=== PATIENT | female | born 1950 | race Caucasian/White ===

== ENCOUNTER 2022-12-15 08:30 | Outpatient (CLI) | payer OTHER, SELFPAY ==
[2022-12-15 13:47] LABS: Basophils Absolute Auto 0.02 K/uL (0.00-0.30); Basophils Percent Auto 0.3 % (0.0-3.0); Eosinophils Absolute Auto 0.12 K/uL (0.00-0.50); Eosinophils Percent Auto 1.8 % (0.0-7.0); Hematocrit 42.9 % (33.0-51.0); Hemoglobin* 14.5 gm/dL (12.0-16.0); Immature Granulocytes Abs Auto 0.02 K/uL (0.00-0.30); Immature Granulocytes Pct Auto 0.3 %; Lymphocytes Absolute Auto 1.58 K/uL (0.90-2.90); Lymphocytes Percent Auto 23.5 % (20-44); Mean Corpuscular HGB Conc 34 gm/dL (32-36); Mean Corpuscular Hemoglobin 31 pg (26-34); Mean Corpuscular Volume 91 fL (80-100); Monocytes Percent Auto 8.9 % (0.0-11.0); Neutrophils Absolute Auto 4.37 K/uL (1.7-7.0); Neutrophils Percent Auto 65.2 % (42.0-72.0); Platelet Count* 176 K/uL (140-440); RDW Coefficient of Variation % 12.2 % (11.5-15.5); Red Blood Count 4.74 m/uL (4.00-5.20); White Blood Count* 6.71 K/uL (4.50-11.00)
[2022-12-15 13:54] LABS: Chloride* 100 mmol/L (96-114); Potassium* 4.5 mmol/L (3.6-5.1); Sodium* 137 mmol/L (135-149)
[2022-12-15 13:57] LABS: Blood Urea Nitrogen* 29 mg/dL (7-30); Carbon Dioxide* 32 mmol/L (20-32); Cholesterol* 174 mg/dL (90-199); Creatinine* 0.8 mg/dL (0.5-1.5); Estimated Glomerular Filt Rate 78 ml/min; Glucose* 137 mg/dL (60-115); Slide Review Reflex No; Triglycerides* 144 mg/dL (40-149)
[2022-12-15 13:58] LABS: Calcium* 10.3 mg/dL (8.4-10.6); HDL Cholesterol* 57 mg/dL (>=50); LDL Cholesterol Calculated 88 mg/dL (<100)
== END 2022-12-15 08:31 | disposition home or self-care (01) ==
PROVIDERS: PCP Family Medicine; Visit Provider Family Medicine
DX: I10 Essential (primary) hypertension (principal); E11.9 Type 2 diabetes mellitus without complications; E04.1 Nontoxic single thyroid nodule
CPT/HCPCS: 80048; 80061; 85025

== ENCOUNTER 2023-08-09 11:20 | Outpatient (CLI) | payer OTHER, SELFPAY | END 2023-08-09 11:21 | disposition home or self-care (01) | PROVIDERS: PCP Family Medicine; Visit Provider Family Medicine | DX: I10 Essential (primary) hypertension (principal); E11.9 Type 2 diabetes mellitus without complications; R53.1 Weakness; R11.10 Vomiting, unspecified | CPT/HCPCS: 80048; 85025 ==

== ENCOUNTER 2023-12-26 08:36 | Outpatient (CLI) | payer OTHER, SELFPAY | END 2023-12-26 08:37 | disposition home or self-care (01) | PROVIDERS: PCP Family Medicine; Visit Provider Family Medicine | DX: I10 Essential (primary) hypertension (principal); Z13.220 Encounter for screening for lipoid disorders | CPT/HCPCS: 80048; 80061 ==

== ENCOUNTER 2024-08-16 13:48 | Outpatient (RCR) | payer OTHER, SELFPAY ==
--- NOTE | 2024-08-16 15:01 | PT.OPEX ---
PT [place] [facility] PT [facility] Eval Start: 07/31/24 13:48 Freq: Status: Active Protocol: Document 08/16/24 09:54 MLS (Rec: 08/16/24 14:59 MLS [id number]) E-signed By Carlyn Franco DPT Physical Therapy Outpatient Evaluation Insurance Information Recert Due Date 11/13/24 Insurance Name Medicare B,[facility] Medical Diagnosis M17.12 Unilateral primary Oa, left knee Z96.652 Presence of left artificial knee joint s/p left TKA 09/11/24 Treating Diagnosis L TKA protocal Referring MD Dr. Smith Subjective Subjective Patient is a 74 year old female who presents to physical therapy for her pre- op appointment prior to left TKA on 09/11/24. Significant past medical history includes heart condition (murmur - EKG next week), previous and current LE blood clots, hypertension and arthritis. Pain Comments Today: 7/10 on a 0-10 pain scale with 10 = extreme pain At its worst: 8-9/10 At its best: 1-2/10 Current Work Status Retired Precautions Weight Bearing Status Full Weight Bearing Therapy Limitations/Systems Review Not Limited Objective Other/Pertinent Objective GAIT/FUNCTIONAL MOBILITY Ambulates with antalgic gait, no SPC today KNEE ROM Right: Extension/Flexion: 0-120 Left: Extension/Flexion: 0-120 HIP ROM Grossly tested WNL LLE MMT: Hip flexion: R 5/5 L 4+/5 Hip abduction: R 5/5 L 4+/5 Hip extension: R 4+/5 L 4+/5 Knee flexion: R 5/5 L 4+/5 Knee extension: R 5/5 L 4+/5 Reviewed/demonstrated on frequency to perform HEP post operatively including: long sitting quad ankle pumps supine heel slide with strap supine quad sets supine SAQ SLR with quad set seated long arc quad seated knee flexion AAROM supine knee extension stretch on towel roll Extensive discussion and education on what to expect post operatively. Time was spent discussing home modifications, Assistive devices, pain control, fall prevention, hospital stay time line, and assist needed for activities post surgically. Pt questions were answered and demonstrated understanding. Assessment Assessment/Impression Pt is a 74 year old female who presents to PT for her pre-op appointment prior to left TKA on 09/11/24. Patient also has notable objective findings including limited ROM, tenderness to palpation, and decreased strength which are also likely contributing to the problem. Patient is a good candidate for skilled therapy to target deficits described above. Skilled PT intervention is necessary for use of therapeutic exercise manual therapy, neuromuscular re- education, gait training, and therapeutic activity. Functional impairments include difficulty with: standing, walking, sleeping, exercising, and ADLS. See appropriate sections of PT eval for complete list of goals and POC . D/C plan and criteria is for pt to achieve the goals as listed below or until max rehab potential is met. Pt was agreeable with plan of care and goals established. Primary Functional Limitations standing walking exercising ADLS sleeping Plan of Care Rehabilitation Potential Good Physical Therapy Goals Within 10-12 weeks: 1) Pt will improve knee AROM at least 0 to 120 for improved sit to stand transfers 2) Pt will demonstrate negative extensor lag during straight leg raise exercise with ability to complete at least 15 reps with 5 sec hold to improve strength for ambulation 3) Patient will demonstrate/ report ability to walk for 15 minutes w/SPC with pain level <1/10, to allow for community and household ambulation. 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 Coordination/Communication With Referral Source Treatment Plan/Direct Interventions Gait Training,Manual Therapy, Neuromuscular Re-ed, Therapeutic Activities, Therapeutic Exercises Patient Will Be Discharged From Therapy Independently Progressing Evaluation Billing Untimed Code Treatment Minutes 30 Complexity Low Certification Information Provider Signature Required Yes Provider Signature Shows Agreement With POC & Medical Necessity Physician NPI Number Write NPI# Here Physician Comment/Change : Physician Signature & Date Requested Please Sign/Date Here
== END 2024-09-25 13:02 | disposition home or self-care (01) ==
PROVIDERS: PCP Family Medicine; Visit Provider Orthopaedic Surgery
DX: M17.12 Unilateral primary osteoarthritis, left knee (principal); Z51.89 Encounter for other specified aftercare
CPT/HCPCS: 97161

== ENCOUNTER 2024-08-22 08:47 | Outpatient (CLI) | payer OTHER, SELFPAY ==
--- OUTSIDE RECORDS SUMMARY | 2024-08-22 08:48 | XMS_ITS | Continuity of Care Document ---
Author Organization [facility] Address [address] [place] [id number] Insurance Providers Payer Plan Claims Address Claims Phone Policy Number Group Number Relation Employer Guarantor Name Guarantor Guarantor Address Guarantor Phone MEDICA RE MEDIC ARE tel:[phone] Self chandler cotto 1950 [address] [place] [address] BCBS BCBS [address] [address], [place] [address] tel:[phone] Self chandler cotto 1950 [address] [place] [address] MEDICA RE PART A - HB USE ONLY MEDIC ARE PART A - HB USE ONLY ATTN: CLAIMS, [address], [place] [address] [phone] Nathan cotto 1950 [address] [place] [address] Problems Condition ICD9 code ICD10 code SNOMED code Start Date End Date S tatus Encounter for screening for other metabolic disorders Z13.228 Cough, unspecified R05.9 Acute bronchitis, unspecified J20.9 Wheezing R06.2 Subacute cough R05.2 Pulmonary hypertension, unspecified I27.20 Results No Results Allergies, adverse reactions, alerts No known allergies and adverse reactions Medications No administered medications reported Vital Signs No vital signs reported Social History No smoking Hx information available
--- OUTSIDE RECORDS SUMMARY | 2024-08-22 08:48 | XMS_ITS | Clinical Summary ---
Author Organization [facility] Address [address] [address] Care Team Providers Care Fish Cutter Name Role Phone Patrick Mattson MD Primary Care Provider [phone] Source Comments You are receiving this document as you are listed as the primary care provider,follow-up provider, or the patient has been referred to you for consultation.This is in compliance with the Medicare and[facility] Incentive Program,which states Providers who transition their patient to another setting of careor provider of care or refers their patient to another provider of care shouldprovide summary care record for each transition of care or referral. Health in Reach Allergies Active Allergy Reactions Criticality Noted Date Comments Penicillins Rash 09/24/2021 Medications Medication Sig Dispensed Refills Start Date End Date Status ATENolol-chlorthalidon e (TENORETIC) 50-25 MG tablet Take 1 Tablet by mouth daily. Active amLODIPine (NORVASC) 10 MG tablet Take 10 mg by mouth daily. Active furosemide (LASIX) 40 MG tablet Take 40 mg by mouth daily. Active apixaban (ELIQUIS) 5 MG tablet Take 2.5 mg by mouth two times a day. Active losartan (COZAAR) 100 MG tablet Take 100 mg by mouth daily. Active Social History Tobacco Use Types Packs/Day Years Used Date Smoking Tobacco: Never Assessed Sex and Gender Information Value Date Recorded Sex Assigned at Not on file Gender Identity Not on file Sexual Orientation Not on file Last Filed Vital Signs Vital Sign Reading Time Taken Comments Blood Pressure 144/69 09/24/2021 9:37 AM WEED SPRAYER Pulse 61 09/24/2021 9:37 AM WEED SPRAYER Temperature - - Respiratory Rate - - Oxygen Saturation 95% 09/24/2021 9:37 AM WEED SPRAYER Inhaled Oxygen Concentration - - Weight 133.8 kg (295 lb) 09/24/2021 9:37 AM WEED SPRAYER Height 170.2 cm (5' 7) 09/24/2021 9:37 AM WEED SPRAYER Body Mass Index 46.2 09/24/2021 9:37 AM WEED SPRAYER Plan of Treatment Health Maintenance Due Date Last Done Comments Colon Cancer Screening Plan Due 1950 Hep C Screening (Preventive Services) 1950 Medicare Annual Wellness Visit 1950 Mammogram 1950 DTaP/Tdap/Td (1 - Tdap) 1968 Zoster/Shingles (1 of 2) 1999 Dexa 2014 Pneumococcal 65+ Yrs (1 - PCV) 2014 COVID-19 Vaccine (3 - 2023-2 5 season) 2024 02/03/2021, 01/02/2021 Influenza (#1) 2024 RSV (1 - 1-dose 75+ series) 2024 HepA Aged Out No longer eligi ble based on patient's age to complete this topic HepB Aged Out No longer eligi ble based on patient's age to complete this topic Hib Aged Out No longer eligi ble based on patient's age to complete this topic IPV (Polio) Aged Out No longer eligi ble based on patient's age to complete this topic Infant RSV Aged Out No longer eligi ble based on patient's age to complete this topic MCV4 Aged Out No longer eligi ble based on patient's age to complete this topic Care Teams Fish 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
--- OUTSIDE RECORDS SUMMARY | 2024-08-22 08:49 | XMS_ITS | Clinical Summary ---
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 0 06/11/2014 Active Graduated Compression StockingsIndications:V enous insufficiency,Varicose veins of lower extremity, unspecified laterality, unspecified whether complicated,Edema, unspecified type For personal use. Length: calf Strength: 20-30 mmHg 1 Packet 06/30/2021 Active potassium chloride (KLOR-CON M20) 20 mEq Extended-Release tabletIndications:SOB (shortness of breath) Take 1 Tablet (20 mEq) by mouth once daily with a meal. 90 Tablet 1 04/29/2022 Active chlorthalidone (HYGROTON) 25 mg tabletIndications:Pulm onary valve stenosis, unspecified etiology Take 1 Tablet (25 mg) by mouth once daily. 90 Tablet 1 04/29/2022 Active apixaban (ELIQUIS) 5 mg tabletIndications:prev ention of venous thromboembolism recurrence Take 2.5 mg by mouth in the morning and 2.5 mg in the evening. Active metFORMIN (GLUCOPHAGE) 500 mg tabletIndications:Type 2 diabetes mellitus without complication, without long-term current use of insulin (HC) [The details of the medication are not available because there are pending changes by a home health clinician.] 60 Tablet 06/01/2022 Active Additional Information Patient not taking.Informant: Patient's Recall, Reported on 08/04/2022 sennosides-docusate (SENOKOT S) (8.6-50 mg) tabletIndications:Bili sharath dyskinesia [The details of the medication are not available because there are pending changes by a home health clinician.] 20 Tablet 06/30/2022 Active Additional Information Patient not taking.Reason: See Comment (not taking), Reported on 08/10/2022 ondansetron (ZOFRAN ODT) 4 mg disintegrating tabletIndications:Naus ea [The details of the medication are not available because there are pending changes by a home health clinician.] 30 Tablet 07/08/2022 Active Additional Information Patient not taking.Reported on 08/04/2022 traMADoL (ULTRAM) 50 mg tabletIndications:Naus ea [The details of the medication are not available because there are pending changes by a home health clinician.] 24 Tablet 07/08/2022 Active Additional Information Patient not taking.Informant: Patient's Recall, Reported on 08/04/2022 cholestyramine-sucrose 4 G (QUESTRAN) 4 gram packetIndications:Diar dago following gastrointestinal surgery [The details of the medication are not available because there are pending changes by a home health clinician.] 28 Packet 07/08/2022 Active Additional Information Patient not taking.Informant: Patient's Recall, Reported on 08/04/2022 WalkerIndications:Vent ral hernia without obstruction or gangrene Walker with front wheels for home use for 999 days. 1 Each 07/29/2022 Active oxyCODONE (ROXICODONE) 5 mg immediate release tabletIndications:Recu rrent ventral hernia with incarceration [The details of the medication are not available because there are pending changes by a home health clinician.] 10 Tablet 07/30/2022 Active Additional Information Patient not taking.Reason: See Comment (not taking), Reported on 08/10/2022 psyllium husk, with sugar, (METAMUCIL) 3.4 gram packetIndications:Diar dago, unspecified type [The details of the medication are not available because there are pending changes by a home health clinician.] 30 Packet 08/01/2022 Active Additional Information Patient not taking.Reason: See Comment (not taking), Reported on 08/10/2022 metoprolol succinate (TOPROL XL) 100 mg Sustained-Release tabletIndications:HTN (hypertension) Take 1 Tablet (100 mg) by mouth once daily. 30 Tablet 08/02/2022 Active losartan (COZAAR) 50 mg tabletIndications:HTN (hypertension) Take 1 Tablet (50 mg) by mouth two times daily. 30 Tablet 08/01/2022 Active Wheat Dextrin (Benefiber) 1 gram chew 2 Tablets two times daily. Active ondansetron (ZOFRAN) 4 mg tablet TAKE ONE TABLET BY MOUTH EVERY 12 HOURS FOR NAUSEA AND VOMITING. 07/02/2022 Active hydrALAZINE (APRESOLINE TABLET) 50 mg tabletIndications:HTN (hypertension) Take 1 Tablet (50 mg) by mouth three times daily. 270 Tablet 4 06/28/2024 Active Active Problems Problem Noted Date Diagnosed Date DM type 2 (diabetes mellitus, type 2) 07/26/2022 History of DVT of left lower extremity Chronic anticoagulation 07/24/2022 Recurrent ventral hernia with incarceration 07/10 Overview (07/26/2022): Status post exploratory laparotomy, lysis of adhesions, reduction of incarcerated incisional hernia, and incisional hernia repair without mesh, Dr. Campos, 07/25/2022. Biliary dyskinesia 06/28/2022 Obesity, morbid, BMI 40.0-49.9 06/28/2022 Ventral hernia without obstruction or gangrene 0 06/28/2022 Preoperative examination 06/28/2022 Acute dehydration 06/28/2022 DVT (deep venous thrombosis) 05/29/2022 HTN (hypertension) 07/01/2014 Resolved Problems Problem Noted Date Diagnosed Date Resolved Date Prediabetes 06/30/2022 07/26/2022 Abdominal pain 05/29/2022 07/25/2022 Encounters Date Type Department Care Team Description 06/28/2024 9:30 AM CDT Office Visit [facility] [address] [place] [address] Jaime Collins MD from Last 3 Months Immunizations Name Administration Dates Next Due Pneumococcal, Unspecified 05/10/2017(Deferred: P atient Refused) Family History Medical History Relation Name Comments Stroke Father Relation Name Status Comments Father Mother Social History Tobacco Use Types Packs/Day Years Used Date Smoking Tobacco: Never Smokeless Tobacco: Never Alcohol Use Standard Drinks/Week Comments Yes 0 (1 standard drink = 0.6 oz pur e alcohol) rare wine Social Connections Answer Date Recorded Frequency of Communication with Friends and Fami ly Not on file 10/10/2021 Financial Resource Strain Answer Date R ecorded Difficulty of Paying Living Expenses Not on file 10/10/2021 Difficulty of Paying Living Expenses Not on file 10/10/2021 Sex and Gender Information Value Date Recorded Sex Assigned at Not on file Gender Identity Not on file Sexual Orientation Not on file Obstetrics History Last Filed Vital Signs Vital Sign Reading Time Taken Comments Blood Pressure 122/66 08/26/2022 12:09 PM GUN PROFILER Pulse 53 08/26/2022 12:09 PM GUN PROFILER Temperature 36.8 ??C (98.3 ??F) 08/26/2022 12:[address] Respiratory Rate 18 08/26/2022 12:09 PM GUN PROFILER Oxygen Saturation 95% 08/26/2022 12:09 PM GUN PROFILER Inhaled Oxygen Concentration - - Weight 122.9 kg (271 lb) 07/31/2022 3:00 AM CDT Height 167.6 cm (5' 6) 07/29/2022 9:00 AM CDT Body Mass Index 43.74 07/29/2022 9:00 AM CDT Plan of Treatment Upcoming Encounters Date Type Department Care Team (Late st Contact Info) Description 08/22/2024 9:00 AM GUN PROFILER Ancillary Procedure [facility] [address] [place] [address] Health Maintenance Due Date Last Done Comments Pneumococcal series for age 65+ (1 of 2 - PCV) 1955 Tdap 1960 Depression screening for age 12+ 1961 Hepatitis C screening for age 18-79 1967 Tetanus booster 1969 Colonoscopy through age 75 1994 Lipids for age 45-75 1994 Zoster (shingles) series for age 50+ (1 of 2) 1999 DEXA/DXA scan for age 65+ 2014 Medicare Wellness for age 65+ 2014 BMI (ht and wt on same day) for age 18+ 05/05/2023 0 05/05/2022, 06/30/2021 COVID-19 vaccine series (2023- season) 2024 02/03/2021, 01/02/2021 Influenza for age 65+ 06/10/2024 RSV vaccine for adults or pr egnancy (1 - 1-dose 75+ series) 2024 Advance Directives * Full Code (Latest Code Status on File) Date Activated Date Inactivated Comments 07/25/2022 3:20 PM 08/01/2022 2:09 PM Patient in tended on full code status and was not aware that she was listed as DNR. Patient and family at bed side would like her to be full code. Question Answer Comments Code Status Discussion: Reviewed Preferences * DNR Date Activated Date Inactivated Comments 07/24/2022 7:34 PM 07/25/2022 3:20 PM Question Answer Comments Code Status Discussion: Reviewed Preferences * DNR Date Activated Date Inactivated Comments 06/28/2022 9:38 AM 06/30/2022 12:30 PM Question Answer Comments Code Status Discussion: Other prior or ders * DNR Date Activated Date Inactivated Comments 05/29/2022 12:34 PM 05/30/2022 4:19 PM Question Answer Comments Code Status Discussion: Reviewed Preferences Care Teams Pressed Or Blown Glass Worker Relationship Specialty Start Date End Date Luis Fonseca MD [address] [place] [id number] PCP - General Family Practice 07/24/22
== END 2024-08-22 08:48 | disposition home or self-care (01) ==
LOC: RAD 08:48
PROVIDERS: PCP Family Medicine; Visit Provider Internal Medicine Cardiovascular Disease
DX: I47.10 Supraventricular tachycardia, unspecified (principal); I51.7 Cardiomegaly; I27.20 Pulmonary hypertension, unspecified
CPT/HCPCS: 93306

== ENCOUNTER 2024-08-29 11:09 | Outpatient (CLI) | payer OTHER, SELFPAY ==
--- OUTSIDE RECORDS SUMMARY | 2024-08-29 11:11 | XMS_ITS | Clinical Summary ---
Author Organization [facility] Address [place], [place] [address] Care Team Providers Care Cobbler Mckay Name Role Phone Luis Fonseca MD Primary [...] Encounters Date Type Department Care Team Description 08/22/2024 9:00 AM DEPARTMENT CLERK Ancillary Procedure [facility] [address] [place] [address] 06/28/2024 9:30 AM CDT Office Visit [facility] [address] [place] [address] Eve Collins MD from Last 3 Months Immunizations [...] Comments Blood Pressure 122/66 08/26/2022 12:09 PM DEPARTMENT CLERK Pulse 53 08/26/2022 12:09 PM DEPARTMENT CLERK Temperature 36.8 C (98.3 F) 08/26/2022 12:09 PM DEPARTMENT CLERK Respiratory Rate 18 08/26/2022 12:09 PM DEPARTMENT CLERK Oxygen Saturation 95% 08/26/2022 12:09 PM DEPARTMENT CLERK Inhaled Oxygen Concentration - - Weight 122.9 kg (271 lb) 07/31/2022 3:00 AM CDT Height 167.6 cm (5' 6) 07/29/2022 9:00 AM CDT Body Mass Index 43.74 07/29/2022 9:00 AM CDT Plan of Treatment Health Maintenance Due Date [...] 05/05/2023 0 05/05/2022, 06/30/2021 COVID-19 vaccine series ( season) 2024 02/03/2021, 01/02/2021 Influenza for age 65+ 06/10/2024 RSV vaccine for adults or pr egnancy (1 - 1-dose 75+ series) 2024 Procedures Procedure Name Priority Date/Time Associated Diagnosis Comments ECHO TTE COMPLETE WO CONTRAST Routine 08/22/2024 9:53 AM DEPARTMENT CLERK Supraventricular tachycardia, unspecified (HC) from Last 3 Months Results * ECHO TTE COMPLETE WO CONTRAST (08/22/2024 9:53 AM DEPARTMENT CLERK) AORTIC VALVE MEAN PG 6 mmHg EJECTION FRACTION 61 % LVEDD 5.5 cm EJECTION FRACTION 60 - 65% Anatomical Region Laterality Modality Ultrasound 08/22/2024 9:04 AM DEPARTMENT CLERK Narrative 08/22/2024 10:21 AM DEPARTMENT CLERK ECHOCARDIOGRAM CHAR WATT : 1950 74 years Study Date: 08/22/2024 9:04:36 AM Gender: F BP: 197/99 mmHg Height: 168.00 cm BSA: 2.31 m Weight: 127.00 kg Tech: CHRISTA Referring MD: EVE COLLINS Site: [facility] Reading Location: Mobile OP Patient Location: Outpatient. Procedure: 2D, Color Doppler and Spectral Doppler. Indication for study: SVT/ PV stenosis Cardiac Rhythm: Normal sinus.Study quality: Fair. Imaging limitations: This study was subject to imaging limitations due to body habitus and a prominent lung artifact. Final Impressions: 1. Normal LV size, mildly increased wall thickness, normal function with an estimated EF of 60 - 65%. 2. Right ventricular cavity size is normal, global systolic RV function is normal. 3. Mildly enlarged left atrium. 4. Mild pulmonic stenosis. Peak gradient 29mmHg, Vmax 2.7m/s, MG 16mmHg. Comparison Compared to prior exam of 2021, there has been no significant change. Chamber Sizes and Function Normal left ventricular size, mildly increased wall thickness, normal global systolic function with an estimated EF of 60 - 65%. No resting regional wall motion abnormality visualized. Left atrial size is mildly enlarged. Right ventricular cavity size is normal, global systolic RV function is normal. The right atrium is mildly enlarged. Right atrial area is 18 cm . The pulmonary artery is of normal size and origin. The sinus of Valsalva is normal sized. The ascending aorta is normal sized. Valves, RV Pressures and Diastolic Function The aortic valve is not well visualized , no stenosis and no regurgitation. The mitral valve is normal in structure, no mitral regurgitation. Normal diastolic function. The tricuspid valve is not well visualized. Tricuspid regurgitation is regurgitation is not evident. The pulmonic valve is not well visualized. No pulmonary regurgitation. TTE images do not appear adequate for transcather intervention with patient supine. Masses, Effusion, Shunts There is no pericardial effusion. The inferior vena cava is dilated, respiratory size variation greater than 50%. No left to right shunting was detected by limited color flow Doppler interrogation of the interatrial septum. MEASUREMENTS AND CALCULATIONS 2-D Measurements and LV Function: LVID (d) 5.4 cm LV FS% (2D) 48 % LVID (s) 2.8 cm LVOT diameter 2.0 cm IVS (d) 1.2 cm HR 58 bpm LVPW (d) 1.3 cm LA Vol index 33 ml/m2 Ao Sinus 3.2 cm RA area 18 cm Asc Ao 3.5 cm RV Max 4C (d) 4.2 cm Diastology: Mitral Tissue Doppler E Peak 0.8 m/s e', Septum 0.06 m/s A Peak 1.0 m/s e', Lateral 0.06 m/s E/A 0.8 E/e' Average 13.68 DT 256 msec Aortic Valve: Vmax 1.7 m/s EMILY (V) 1.78 cm VTI 0.44 m EMILY (I) 2.13 cm LVOT V max 0.9 m/s Max PG 12 mmHg LVOT VTI 0.29 m Mean PG 6 mmHg SV 94 ml Dim Index 0.65 SV index 41 ml/m CO 5.5 l/min CI 2.4 l/min/m Mitral Valve: MVA 3.0 cm MV P 1/2 74 msec Tricuspid Valve and estimated PA pressures: TAPSE 2.5 cm Pulmonic Valve: PV Vmax 2.6 m/s PV meanG 15 mmHg PV VTI 0.70 m . This study was interpreted by an [facility] accredited facility. CC: [facility] (med records) [facility]. Final Procedure Note Gabriele Chandler MD - 08/22/2024 ECHOCARDIOGRAM CHAR WATT : 1950 74 years Study Date: 08/22/2024 9:04:36 AM Gender: F BP: 197/99 mmHg Height: 168.00 cm BSA: 2.31 m Weight: 127.00 kg Tech: Rafael Referring MD: EVE COLLINS Site: [facility] Reading Location: Mobile OP Patient Location: Outpatient. Procedure: 2D, Color Doppler and Spectral Doppler. Indication for study: SVT/ PV stenosis Cardiac Rhythm: Normal sinus.Study quality: Fair. Imaging limitations: This study was subject to imaging limitations due tobody habitus and a prominent lung artifact. Final Impressions: 1. Normal LV size, mildly increased wall thickness, normal function withan estimated EF of 60 - 65%. 2. Right ventricular cavity size is normal, global systolic RV functionis normal. 3. Mildly enlarged left atrium. 4. Mild pulmonic stenosis. Peak gradient 29mmHg, Vmax 2.7m/s, [id number]. Comparison Compared to prior exam of 2021, there has been no significant change. Chamber Sizes and Function Normal left ventricular size, mildly increased wall thickness, normalglobal systolic function with an estimated EF of 60 - 65%. No restingregional wall motion abnormality visualized. Left atrial size is mildlyenlarged. Right ventricular cavity size is normal, global systolic RVfunction is normal. The right atrium is mildly enlarged. Right atrial areais 18 cm . The pulmonary artery is of normal size and origin. The sinusof Valsalva is normal sized. The ascending aorta is normal sized. Valves, RV Pressures and Diastolic Function The aortic valve is not well visualized , no stenosis and noregurgitation. The mitral valve is normal in structure, no mitralregurgitation. Normal diastolic function. The tricuspid valve is not wellvisualized. Tricuspid regurgitation is regurgitation is not evident. Thepulmonic valve is not well visualized. No pulmonary regurgitation. TTEimages do not appear adequate for transcather intervention with patientsupine. Masses, Effusion, Shunts There is no pericardial effusion. The inferior vena cava is dilated,respiratory size variation greater than 50%. No left to right shunting wasdetected by limited color flow Doppler interrogation of the interatrialseptum. MEASUREMENTS AND CALCULATIONS 2-D Measurements and LV Function: LVID (d) 5.4 cm LV FS% (2D) 48 % LVID (s) 2.8 cm LVOT diameter 2.0 cm IVS (d) 1.2 cm HR 58 bpm LVPW (d) 1.3 cm LA Vol index 33 ml/m2 Ao Sinus 3.2 cm RA area 18 cm Asc Ao 3.5 cm RV Max 4C (d) 4.2 cm Diastology: Mitral Tissue Doppler E Peak 0.8 m/s e', Septum 0.06 m/s A Peak 1.0 m/s e', Lateral 0.06 m/s E/A 0.8 E/e' Average 13.68 DT 256 msec Aortic Valve: Vmax 1.7 m/s EMILY (V) 1.78 cm VTI 0.44 m EMILY (I) 2.13 cm LVOT V max 0.9 m/s Max PG 12 mmHg LVOT VTI 0.29 m Mean PG 6 mmHg SV 94 ml Dim Index 0.65 SV index 41 ml/m CO 5.5 l/min CI 2.4 l/min/m Mitral Valve: MVA 3.0 cm MV P 1/2 74 msec Tricuspid Valve and estimated PA pressures: TAPSE 2.5 cm Pulmonic Valve: PV Vmax 2.6 m/s PV meanG 15 mmHg PV VTI 0.70 m . This study was interpreted by an [facility] accredited facility. CC: [facility] ([facility]) [facility]. Final Eve Collins MD ECHO ORD from Last 3 Months Advance Directives * Full Code (Latest Code [...] Code Status Discussion: Reviewed Preferences Care Teams Cobbler Mckay Relationship Specialty Start Date End Date Luis Fonseca MD [address] [place] [address] PCP - General Family Practice 07/24/22
--- OUTSIDE RECORDS SUMMARY | 2024-08-29 11:11 | XMS_ITS | Continuity of Care Document ---
Author Organization [employer] Address [address] [place] [facility] [address] [place] [id number] Insurance Providers Payer Plan Claims Address Claims Phone Policy Number Group Number Relation Employer Guarantor Name Guarantor Guarantor Address Guarantor Phone MEDICA RE MEDIC ARE tel:[phone] Self chandler cotto 1950 [address] [place] [address] BCBS BCBS [address] [address], [place] [address] tel:[phone] Self chandler cotto 1950 [address] [place] [address] MEDICA RE PART A - HB USE ONLY MEDIC ARE PART A - HB USE ONLY ATTN: CLAIMS, [address], [place] [phone] Nathan cotto 1950 [address] [place] [address] Problems Condition ICD9 code ICD10 code SNOMED [...]
--- OUTSIDE RECORDS SUMMARY | 2024-08-29 11:11 | XMS_ITS | Clinical Summary ---
Author Organization [facility] Address [address], [place] [address] Care Team Providers Care Skein Straightener Name Role Phone Patrick Mattson MD Primary Care Provider [phone] Source Comments You are receiving this document as you are listed as the primary care provider,follow-up provider, or the patient has been referred to you for consultation.This is in compliance with the Medicare and[facility] EHR Incentive Program,which states Providers who transition their patient to another setting of careor provider of care or refers their patient to another provider of care shouldprovide summary care record for each transition of care or referral. [employer] Allergies Active Allergy Reactions Criticality Noted Date [...] Comments Blood Pressure 144/69 09/24/2021 9:37 AM MASON TENDER Pulse 61 09/24/2021 9:37 AM MASON TENDER Temperature - - Respiratory Rate - - Oxygen Saturation 95% 09/24/2021 9:37 AM MASON TENDER Inhaled Oxygen Concentration - - Weight 133.8 kg (295 lb) 09/24/2021 9:37 AM MASON TENDER Height 170.2 cm (5' 7) 09/24/2021 9:37 AM MASON TENDER Body Mass Index 46.2 09/24/2021 9:37 AM MASON TENDER Plan of Treatment Health Maintenance Due Date [...] age to complete this topic Care Teams Skein Straightener Relationship Specialty Start Date End Date Patrick Mattson MD [address] [place] [address] PCP - General Family Practice 09/24/21
== END 2024-08-29 11:10 | disposition home or self-care (01) ==
PROVIDERS: PCP Family Medicine; Visit Provider Family Medicine
DX: Z01.818 Encounter for other preprocedural examination (principal)
CPT/HCPCS: 80048; 85025

== ENCOUNTER 2024-09-11 08:18 | Day surgery (SDC) | payer MEDICARE, SELFPAY ==
[2024-09-11] VITALS (30 sets, daily range): BP systolic 105–182; BP diastolic 51–105; PULSE 43–59; RESP 9–20; TEMP 35.7–37; O2SAT 85–98; BMI 45.5
--- OUTSIDE RECORDS SUMMARY | 2024-09-11 08:20 | XMS_ITS | Continuity of Care Document ---
Author Organization [facility] Address [address] [facility] [address] [place] [id number] Insurance Providers Payer Plan Claims Address Claims Phone Policy Number Group Number Relation Employer Guarantor Name Guarantor Guarantor Address Guarantor Phone MEDICA RE MEDIC ARE tel:[phone] Self chandler cotto 1950 [address] [place] [address] BCBS BCBS [address] [address], [place] [address] tel:[phone] Self chandler cotto 1950 [address] [place] [address] MEDICA RE PART A - HB USE ONLY MEDIC ARE PART A - HB USE ONLY ATTN: CLAIMS, [address], [place] [phone] Nathan cotto 1950 [address] [place] [address] Problems Condition ICD9 code ICD10 code SNOMED code Start Date End Date S tatus Encounter for screening for other metabolic disorders Z13.228 Cough, unspecified R05.9 Wheezing R06.2 Acute bronchitis, unspecified J20.9 Subacute cough R05.2 Pulmonary hypertension, unspecified I27.20 Pulmonary hypertension, unspecified I27.20 Encounter for screening, unspecified Z13.9 Results No Results Allergies, adverse reactions, alerts No known allergies and adverse reactions Medications No administered medications reported Vital Signs No vital signs reported Social History No smoking Hx information available
--- OUTSIDE RECORDS SUMMARY | 2024-09-11 08:20 | XMS_ITS | Clinical Summary ---
Author Organization [facility] Address [address], [place] [address] Care Team Providers Care Glassware Maker Name Role Phone Patrick Mattson MD Primary Care Provider [phone] Source Comments You are receiving this document as you are listed as the primary care provider,follow-up provider, or the patient has been referred to you for consultation.This is in compliance with the Medicare and[facility] EHR Incentive Program,which states Providers who transition their patient to another setting of careor provider of care or refers their patient to another provider of care shouldprovide summary care record for each transition of care or referral. [employer] Allergies Active Allergy Reactions Criticality Noted Date [...] Comments Blood Pressure 144/69 09/24/2021 9:37 AM OIL ANALYST Pulse 61 09/24/2021 9:37 AM OIL ANALYST Temperature - - Respiratory Rate - - Oxygen Saturation 95% 09/24/2021 9:37 AM OIL ANALYST Inhaled Oxygen Concentration - - Weight 133.8 kg (295 lb) 09/24/2021 9:37 AM OIL ANALYST Height 170.2 cm (5' 7) 09/24/2021 9:37 AM OIL ANALYST Body Mass Index 46.2 09/24/2021 9:37 AM OIL ANALYST Plan of Treatment Health Maintenance Due Date [...] on patient's age to complete this topic RSV Aged Out No longer eligi ble based on patient's age to complete this topic [id number] Aged Out No longer eligi ble based on patient's age to complete this topic Care Teams Glassware Maker Relationship Specialty Start Date End Date Patrick Mattson MD [address] [place] [address] PCP - General Family Practice 09/24/21
--- OUTSIDE RECORDS SUMMARY | 2024-09-11 08:21 | XMS_ITS | Clinical Summary ---
Author Organization [facility] Address [place], [place] [address] Care Team Providers Care Route Sales Specialist Name Role Phone Luis Fonseca MD Primary [...] Department Care Team Description 08/22/2024 9:00 AM BLANKET WASHER Ancillary Procedure [facility] [address] [place] [address] 06/28/2024 9:30 AM CDT Office Visit [facility] [address] [place] [address] Eve Collins MD from Last 3 Months [...] Comments Blood Pressure 122/66 08/26/2022 12:09 PM BLANKET WASHER Pulse 53 08/26/2022 12:09 PM BLANKET WASHER Temperature 36.8 C (98.3 F) 08/26/2022 12:09 PM BLANKET WASHER Respiratory Rate 18 08/26/2022 12:09 PM BLANKET WASHER Oxygen Saturation 95% 08/26/2022 12:09 PM BLANKET WASHER Inhaled Oxygen Concentration - - Weight 122.9 [...] COMPLETE WO CONTRAST Routine 08/22/2024 9:53 AM BLANKET WASHER Supraventricular tachycardia, unspecified (HC) from Last 3 Months Results * ECHO TTE COMPLETE WO CONTRAST (08/22/2024 9:53 AM BLANKET WASHER) AORTIC VALVE MEAN PG 6 mmHg EJECTION FRACTION 61 % LVEDD 5.5 cm EJECTION FRACTION 60 - 65% Anatomical Region Laterality Modality Ultrasound 08/22/2024 9:04 AM BLANKET WASHER Narrative 08/22/2024 10:21 AM BLANKET WASHER ECHOCARDIOGRAM CHAR WATT : 1950 74 years Study Date: 08/22/2024 9:04:36 AM Gender: F BP: 197/99 mmHg Height: 168.00 cm BSA: 2.31 m Weight: 127.00 kg Tech: CHRISTA Referring MD: EVE COLLINS Site: [facility] Reading Location: Mobile OP Patient [...] . This study was interpreted by an [facility] accredited facility. CC: [facility] (med records) [facility]. Final Procedure Note Gabriele Chandler MD - 08/22/2024 ECHOCARDIOGRAM CHAR WATT : 1950 74 years Study Date: 08/22/2024 9:04:36 AM Gender: F BP: 197/99 mmHg Height: 168.00 cm BSA: 2.31 m Weight: 127.00 kg Tech: CHRISTA Referring MD: EVE COLLINS Site: [facility] Reading Location: Mobile OP Patient [...] pulmonic stenosis. Peak gradient 29mmHg, Vmax 2.7m/s, [id number]. Comparison Compared to prior exam of 2021, [...] . This study was interpreted by an [facility] accredited facility. CC: [facility] ([facility]) [facility]. Final Eve Collins MD ECHO ORD from [...] Code Status Discussion: Reviewed Preferences Care Teams Route Sales Specialist Relationship Specialty Start Date End Date Luis Fonseca MD [address] [place] [address] PCP - General Family Practice 07/24/22
[2024-09-11] MEDS: ACETAMINOPHEN 500 MG TABLET 1000 MG PO ×3 (08:57→21:36)
[2024-09-11] MEDS: OXYCODONE (CR) 10 MG TAB.ER.12H PO (08:58)
[2024-09-11] MEDS: SODIUM CHLORIDE 0.9 % (FLUSH) 10 ML SYRINGE IVF (08:58)
[2024-09-11] MEDS: CELECOXIB 200 MG CAPSULE PO (08:58)
[2024-09-11] MEDS: LACTATED RINGERS 1000 ML 1,000 ML 100 ML IV (08:58)
[2024-09-11] MEDS: MIDAZOLAM HCL 1 MG/ML inj IVP (09:41)
[2024-09-11] MEDS: fentaNYL 100 MCG/2 ML inj IVP (09:41)
--- NOTE | 2024-09-11 09:45 | SUR.PREOP ---
TIME?OUT:?0940 PT/RN/MDA?VERIFICATION?OF?SURGICAL?SITE Left Knee,?PROCEDURE Nerve Block,?AND?CONSENT OBTAINED?PRIOR?TO?INVASIVE?PROCEDURE.
--- NOTE | 2024-09-11 09:57 | P.NB_ITS ---
Nerve Block Nerve Block Time Seen by Provider: 09:42 Date Seen: 09/11/24 Type of block requested by surgeon for post-operative analgesia: adductor canal Side: left Time out performed: Yes Verification of patient name: Yes Verification of date of : Yes Site marking: site marked Name of person performing procedure: Tino Continuous monitoring Was continuous monitoring of O2 sat, B/P, manager of employee relations, recorded every 15 minutes?: Yes Procedure Checklist: sterile prep, needles and gloves Ultrasound guided. Images saved: Yes Medications given in 5ml increments after negative aspiration: Marcaine %: 0.25 mL: 15 Needle gauge: 20 Precedex (mcg): 25 Patient tolerated procedure well: Yes Block Charges Block Charge (with Pro Fee): Femoral Nerve Use of Ultrasound Machine for Block: Yes- US Guidance/pain block
--- NOTE | 2024-09-11 09:58 | P.NB_ITS ---
Nerve Block Nerve Block Time Seen by Provider: 09:42 Date Seen: 09/11/24 Type of block requested by surgeon for post-operative analgesia: geniculars Side: left Time out performed: Yes Verification of patient name: Yes Verification of date of : Yes Site marking: site marked Name of person performing procedure: Tino Continuous monitoring Was continuous monitoring of O2 sat, B/P, monitoring and evaluation advisor, recorded every 15 minutes?: Yes Procedure Checklist: sterile prep, needles and gloves Ultrasound guided. Images saved: Yes Medications given in 5ml increments after negative aspiration: Marcaine %: 0.25 mL: 9 Needle gauge: 25 Patient tolerated procedure well: Yes Block Charges Block Charge (with Pro Fee): Genicular Nerve Block
--- NOTE | 2024-09-11 09:58 | W.ANESCHARGE ---
Anesthesia Charges Start Date/Time Anesthesia Start Date: 09/11/24 Anesthesia Start Time: 10:40 Stop Date/Time Anesthesia Stop Date: 09/11/24 Anesthesia Stop Time: 13:32 Summary Extremes of Age - Over 70 or under 1: MDA
[2024-09-11] MEDS: CEFAZOLIN 2 GM INJ IVP (10:51)
[2024-09-11] MEDS: TRANEXAMIC ACID 100 MG/ML INJ 1000 MG IV (10:52)
--- NOTE | 2024-09-11 10:53 | W.ANESCHARGE ---
Anesthesia Charges Start Date/Time Anesthesia Start Date: 09/11/24 Anesthesia Start Time: 10:40 Stop Date/Time Anesthesia Stop Date: 09/11/24 Anesthesia Stop Time: 13:32 Summary Extremes of Age - Over 70 or under 1: STRATEGIC BUSINESS DEVELOPMENT
--- NOTE | 2024-09-11 12:30 | CRLHL7_ITS ---
For Patients: As a result of the Cures Act, medical imaging exams and procedure reports are released immediately into your electronic medical record. You may view this report before your referring provider. If you have questions, please contact your health care provider. INDICATION: Postoperative total knee arthroplasty TECHNIQUE: Knee radiograph 2 views left COMPARISON: None FINDINGS: Bone: No acute fractures or aggressive bone lesions are identified. Joint: The patient is status post a total knee arthroplasty with patellar resurfacing. No significant knee effusion is seen. Soft tissue: Anterior subcutaneous gas and joint gas are present from recent surgery. No radiopaque foreign bodies are seen. IMPRESSION: 1. There is an unremarkable postoperative appearance of the knee arthroplasty. Dictated by: Justin Rivera MD @ 09/11/2024 14:05:29 (Electronically Signed)
--- NOTE | 2024-09-11 12:35 | P.ORPRC_ITS ---
Procedure Note Date of procedure: 09/11/24 Procedure: PREOPERATIVE DIAGNOSIS: Left knee osteoarthritis POSTOPERATIVE DIAGNOSIS: Left knee osteoarthritis NAME OF OPERATION: Left total knee arthroplasty SURGEON: Matthieu Smith MD PROCESS CONTROL MANAGER: Mrytle Moraes PA-C ANESTHESIA: Spinal ESTIMATED BLOOD LOSS: 0 mL COMPLICATIONS: None SPECIMENS: None DRAINS: None PREOPERATIVE ANTIBIOTICS: Ancef 3 grams, antibiotic impregnated cement IMPLANTS: 1. J[employer]J Attune revision CRS # 5 posterior stabilized femur, 14 mm x 50 mm cemented stem 2. # 5 revision CRS fixed-bearing tibia, 14 mm x 50 mm cemented stem 3. # 5 posterior stabilized, 5 mm fixed-bearing polyethylene 4. 38 patella INDICATIONS: The patient is a 74-year-old with a longstanding history of severe, unrelenting left knee pain secondary to end-stage (grade IV) left knee osteoarthritis. Despite appropriate nonoperative management, including activity modification, anti-inflammatories, [id number] pain medication, bracing, physical therapy, and injections they continue to have pain and disability. Operative intervention was offered. The risks, benefits and expected outcomes were discussed in detail. These included but were not limited to: Infection, bleeding, injury to blood vessel or nerve, venous thromboembolism. All questions were answered to their satisfaction. Use of an assistant director of residence life was necessary throughout the case for patient positioning and safety, soft tissue retraction, and closure. A modifier 22 should be added to this case. The patient's weight of 128 kg with a BMI of 45 made the exposure difficult. Additionally, to reduce the risk of aseptic loosening stemmed components were used. These factors added time and cost to complete the case. PROCEDURE: Spinal anesthesia was administered. The patient was placed supine on the operating table. The assistant director of residence life made sure the patient was positioned appropriately. The lower extremity was prepped and draped in the usual sterile fashion. The limb was exsanguinated with the Kwadwo bandage. The pneumatic tourniquet was inflated to 300 mmHg. A standard anterior incision was made with the knee in flexion. Subcutaneous dissection was sharply taken through fascial layer #1. Full-thickness medial and lateral flaps were elevated. The assistant director of residence life retracted the soft tissues and protected them throughout the case. A standard subvastus approach was made. The patella was subluxed. The infrapatellar fat pad was debrided. The menisci and cruciate ligaments were sharply d?brided. Marginal osteophytes were d?brided with the rongeur. The drill was used to penetrate the femoral canal. The canal was aspirated and irrigated with pulse lavage. The intramedullary femoral guide was placed for a 5-degree valgus cut, removing 10 mm off the distal femur. The saw was used to make the cut. Whitesides line and the trans epicondylar axis were marked. The femoral sizing guide was pinned onto the distal femur. Three degrees of external rotation nicely parallels the transepicondylar axis. Pins were placed for posterior referencing. The four-in-one cutting guide was pinned onto the distal femur. The anterior, posterior, and chamfer cuts were made. The assistant director of residence life protected the collateral ligaments. The revision trial was placed. The box cuts were made. The drill was used x2. The stemmed, boxed trial was placed and was an excellent fit. Attention was then turned to the proximal tibia. The extramedullary tibial chanelle de was placed for a neutral varus/valgus cut with 5 degrees of posterior slope, removing 2 mm based off the medial tibial surface. The assistant director of residence life protected the collateral ligaments and the neurovascular bundle. The saw was used to make the cut. Trial components were placed. The knee was nicely balanced in both flexion and extension. The trial components were removed. The tray was placed in appropriate rotation, parallel to our tibial cutting pins. It was pinned by the assistant director of residence life and the drill x2 was used. The stemmed tibial trial was placed. The punch was used. The tray was removed. The punch was used again. Attention was then turned to the patella. [place] patellar thickness was 23.5 mm. The lobster claw resection guide was used with the 9.5 mm darleen. The saw was used to make the cut. Drill holes were made by the assistant director of residence life. The trial was placed and was an excellent fit. Cancellous surfaces were irrigated with pulse lavage and thoroughly dried by the assistant director of residence life. We cemented the tibial component, then the femoral component. We impacted the 5 mm polyethylene onto the tibial tray. The knee was brought into full extension. We then cemented the patellar component. Excessive cement was removed. The cement was allowed to harden. The knee was taken through a range of motion and was found to be nicely balanced in both flexion and extension. The patella tracks centrally. The assistant director of residence life did a three minute dilute Betadine solution soak. The assistant director of residence life irrigated the wound with 3 liters of normal saline via pulse lavage. The assistant director of residence life reapproximated the extensor mechanism with #1 Vicryl in an interrupted lnojiz-km-xelka fashion. The assistant director of residence life then ran the extensor mechanism with a #1 PDO Stratafix. The assistant director of residence life closed the subcutaneous tissues with a 3-0 Str atafix and the skin with a running 3-0 Stratafix in a subcuticular fashion. Glue was used to seal the skin. The assistant director of residence life placed a dry dressing. Sponge and needle counts were correct x2. The patient tolerated the procedure well. There were no apparent complications. They were carefully transferred to the hospital bed and taken to the postanesthesia care unit in satisfactory condition. PLAN: The patient will be mobilized with physical therapy. Given the patient's history of DVT/PE, Xarelto will be used for DVT prophylaxis. They will be discharged to home once medically appropriate.
[2024-09-11] MEDS: LACTATED RINGERS 1000 ML 1,000 ML 75 ML IV (15:56)
[2024-09-11] MEDS: CEFAZOLIN 3 GM in 0.9 % SODIUM CHLORIDE Mini-bag 100 ML IVPB (16:45)
[2024-09-11] MEDS: HYDROmorphone 0.5 mg/0.5 ml inj IVP ×3 (17:39→23:23)
[2024-09-11] MEDS: ONDANSETRON 2 MG/ML inj 4 MG IVP (17:40)
--- NOTE | 2024-09-11 18:24 | P.IMCN_ITS ---
Date of Consult Consult date: 09/11/24 Primary Care Provider: Luis Fonseca MD Consult Narrative Narrative: HOSPITALIST CONSULT Procedure: Left total knee arthroplasty SURGEON: Matthieu Smith MD [employer] MANAGER: Myrtle Moraes PA-C ANESTHESIA: Spinal ESTIMATED BLOOD LOSS: 0 mL COMPLICATIONS: None The hospital medicine team was asked by the orthopedic surgery team to manage the patient's HTN and hx of pulmonary embolis/DVT There have been no perioperative complications. I have updated and reviewed the active medical problems, past medical history, past surgical history, social history, allergies and medications in our [facility] EMR. This includes a cross reference to care everywhere in [facility] and with [facility] databases. PHYSICAL EXAM: CODE STATUS: FULL CODE CONSTITUTIONAL: Conversive, good historian. A/O. Knows setting and context. VITAL SIGNS: see record. HEENT: Normocephalic, atraumatic. PERRL, EOMI, conjunctivae pink, no scleral icterus. Ears and nose externally normal. Pharynx normal. NECK: No JVD. No carotid bruit, no thyromegaly, no adenopathy. CHEST: Clear to auscultation bilaterally HEART: S1 and S2 normal. ABDOMEN: Flat, soft, nontender. Normal bowel sounds. Moderately obese. EXTREMITIES: No edema. MUSCULOSKELETAL: Surgical dressing is intact/dry. NEURO: Cranial nerves intact. Mentation normal. Normal affect. SKIN: No rashes, petechiae, concerning changes PSYCHIATRIC: Mentation normal. INVESTIGATIONS: EMR Reviewed; Pre-OP Reviewed DISPOSITION: DVT: Agree with 30 days of a DOAC. GI: PO intake PFSH [facility] Medical History (Updated 09/11/24 @ 19:38 by Katey Joseph MD) History of deep venous thrombosis (DVT) of distal vein of right lower extremity (03/19/21) ?Z86.718 - Personal history of other venous thrombosis and embolism (ICD-10) History of pulmonary embolus (PE) (04/09/21) ?Z86.711 - Personal history of pulmonary embolism (ICD-10) SVT (supraventricular tachycardia) (07/2022) ?I47.10 - Supraventricular tachycardia, unspecified (ICD-10) Osteoarthritis of left knee ?M17.12 - Unilateral primary osteoarthritis, left knee (ICD-10) Primary hypertension ?I10 - Essential (primary) hypertension (ICD-10) Chronic nausea ?R11.0 - Nausea (ICD-10) Osteoarthritis of right knee ?M17.11 - Unilateral primary osteoarthritis, right knee (ICD-10) Chronic left hip pain ?M25.552 - Pain in left hip (ICD-10) ?G89.29 - Other chronic pain (ICD-10) Chronic left shoulder pain ?M25.512 - Pain in left shoulder (ICD-10) ?G89.29 - Other chronic pain (ICD-10) Chronic neck pain ?M54.2 - Cervicalgia (ICD-10) ?G89.29 - Other chronic pain (ICD-10) History of COVID-19 (06/2022) ?Z86.16 - Personal history of COVID-19 (ICD-10) Pulmonary hypertension ?I27.20 - Pulmonary hypertension, unspecified (ICD-10) Thyroid nodule ?E04.1 - Nontoxic single thyroid nodule (ICD-10) MARISOL (obstructive sleep apnea) ?G47.33 - Obstructive sleep apnea (adult) (pediatric) (ICD-10) Surgical History (Updated 09/11/24 @ 19:38 by Katey Joseph MD) Status post total knee replacement, left ?Z96.652 - Presence of left artificial knee joint (ICD-10) Incarcerated ventral hernia (07/23/22) ?K43.6 - Other and unspecified ventral hernia with obstruction, without gangrene (ICD-10) History of total abdominal hysterectomy and bilateral salpingo-oophorectomy (12/26/98) ?Z90.710 - Acquired absence of both cervix and uterus (ICD-10) ?Z90.722 - Acquired absence of ovaries, bilateral (ICD-10) ?Z90.79 - Acquired absence of other genital organ(s) (ICD-10) History of tubal ligation (1984) ?Z98.51 - Tubal ligation status (ICD-10) History of laparoscopic cholecystectomy (06/29/22) ?Z90.49 - Acquired absence of other specified parts of digestive tract (ICD- 10) Family History Father Stroke, Onset Age: 82 Brother Lung cancer Sister Uterine cancer Thyroid disease Mother Coronary artery disease Social History (Updated 08/29/24 @ 10:33 by Kerrie Linton ~ RMA, RMA) Narrative: , five kids, retired, nonsmoker, social ETOH What is your current living situation?: I presently have a place to live Problems where you live: no known problems In the past 12 months, utilities in danger of being shut off: no In the past 12 mos, have been you worried that your food would run out before you had money to buy more?: never true In the past 12 mos, the food you bought just didn't last and you didn't have money to buy more?: never true Smoking Status: Never smoker How often do you have a drink containing alcohol: monthly or less How many standard drinks containing alcohol do you have on a typical day: 1 or 2 AUDIT-C Alcohol total score: 1 Non-prescribed substance use: denies use How often does anyone, including family, friends and others, physically hurt you : never How often does anyone, including family, friends and others, insult or talk down to you: never How often does anyone, including family, friends and others, threaten you with harm: never How often does anyone, including family, friends and others, scream or curse at you: never Meds Home Medications and Allergies Home Medications ?Medication ?Instructions ?Recorded ?Confirmed ?Type hydralazine 50 mg tablet 50 mg PO TID 08/29/24 09/11/24 History amlodipine 10 mg tablet 10 mg PO HS 09/11/24 09/11/24 History chlorthalidone 25 mg tablet 25 mg PO DAILY 09/11/24 09/11/24 History Allergies Allergy/AdvReac Type Severity Reaction Status Date / Time diatrizoate meglumine Allergy Unknown Rash & Verified 09/11/24 08:28 Itching hydrochlorothiazide (From Allergy Unknown Unknown Verified 09/11/24 08:28 Zestoretic) Iodinated Contrast Media Allergy Unknown Rash & Verified 09/11/24 08:28 Itching Penicillins Allergy Unknown Unknown Verified 09/11/24 08:28 lisinopril AdvReac Unknown Cough Verified 09/11/24 08:28 Exam Const: Vital Signs, click to edit/add: Vital Signs - 24 hr 09/11/24 08:38 09/11/24 09:40 09/11/24 09:45 Temperature 98.1 F Pulse Rate 56 L 55 L 56 L Pulse Rate [Pulse Oximeter] Respiratory Rate 16 16 16 Blood Pressure 182/72 H 164/69 H 156/67 H Pulse Oximetry 96 98 98 Oxygen Delivery Me thod Room Air Nasal Cannula Nasal Cannula Oxygen Flow Rate 2 2 09/11/24 09:50 09/11/24 09:55 09/11/24 13:30 Temperature 96.8 F L Pulse Rate 55 L 56 L 49 L Pulse Rate [Pulse Oximeter] Respiratory Rate 16 16 16 Blood Pressure 143/67 H 142/66 H 119/51 L Pulse Oximetry 98 98 92 Oxygen Delivery Me thod Nasal Cannula Nasal Cannula Room Air Oxygen Flow Rate 2 2 09/11/24 13:35 09/11/24 13:40 09/11/24 13:45 Temperature Pulse Rate 44 L 44 L 43 L Pulse Rate [Pulse Oximeter] Respiratory Rate 14 16 13 Blood Pressure 107/52 L 113/55 L 114/57 L Pulse Oximetry 96 94 96 Oxygen Delivery Me thod Oxygen Flow Rate 09/11/24 13:50 09/11/24 13:54 09/11/24 14:05 Temperature 97.1 F L Pulse Rate 45 L 44 L 46 L Pulse Rate [Pulse Oximeter] Respiratory Rate 12 14 20 Blood Pressure 116/59 L 128/55 L 130/66 Pulse Oximetry 95 97 96 Oxygen Delivery Me thod Room Air Oxygen Flow Rate 09/11/24 14:15 09/11/24 14:30 09/11/24 14:45 Temperature 96.2 F L Pulse Rate 45 L 45 L 48 L Pulse Rate [Pulse Oximeter] Respiratory Rate 20 20 16 Blood Pressure 131/62 141/105 H 124/68 Pulse Oximetry 96 93 96 Oxygen Delivery Me thod Room Air Room Air Room Air Oxygen Flow Rate 09/11/24 15:00 09/11/24 15:00 09/11/24 15:00 Temperature 96.6 F L Pulse Rate 46 L Pulse Rate [Pulse Oximeter] 58 L Respiratory Rate 16 16 Blood Pressure 105/56 L Pulse Oximetry 96 94 Oxygen Delivery Me thod Room Air Room Air Oxygen Flow Rate 09/11/24 15:30 09/11/24 16:00 09/11/24 17:00 Temperature Pulse Rate 51 L 50 L 58 L Pulse Rate [Pulse Oximeter] Respiratory Rate Blood Pressure 143/69 H 140/62 H 138/65 Pulse Oximetry 94 96 96 Oxygen Delivery Me thod Room Air Room Air Room Air Oxygen Flow Rate 09/11/24 17:55 09/11/24 18:00 09/11/24 18:02 Temperature Pulse Rate 56 L 56 L Pulse Rate [Pulse Oximeter] Respiratory Rate 9 L 10 L 10 L Blood Pressure 155/68 H Pulse Oximetry 85 L 88 96 Oxygen Delivery Me thod Room Air Room Air Nasal Cannula Oxygen Flow Rate 2 09/11/24 18:12 09/11/24 18:18 Temperature Pulse Rate 56 L 54 L Pulse Rate [Pulse Oximeter] Respiratory Rate 12 12 Blood Pressure Pulse Oximetry 95 95 Oxygen Delivery Me thod Nasal Cannula Nasal Cannula Oxygen Flow Rate 1.5 1.5 Assessment and Plan Assessment and plan (1) Status post total knee replacement, left: Problem comment: 09/11/2024; Dr. Smith Status: Acute Assessment and Plan: happy to follow this patient through to discharge. We will manage her hypertension conservatively. We are aware of her history DVT to PE. We agree with 1 month of Xarelto therapy. Courage early ambulation and pain management. (2) Prediabetes: Status: Acute (3) History of pulmonary embolus (PE): Problem comment: [facility] CTA 04/09/21: PE in distal R pulmonary artery. Status: Acute (4) History of deep venous thrombosis (DVT) of distal vein of right lower extremity: Problem comment: previous DOAC; this was discontinued Status: Acute (5) Primary hypertension: Status: Chronic (6) MARISOL (obstructive sleep apnea): Status: Chronic
--- NOTE | 2024-09-11 18:57 | PC.NURSE ---
Nursing Care Hours: [id number] Pt arrived from PACU awake and oriented with no pain. VSS on room air, pedal pulses present and bilat LE numb. Mild nausea while in bed. 1630, Ax1 with walker and gait belt into recliner, pt tolerated well. Incontinent void on bed changed. Pain increased to 6/10 while up in chair. Anti nausea and IV pain meds given. Shortly after pain med, spo2 alarmed at 85%. Police Shift Commander checked pt and pt sleeping up in chair with RR of 9. Pt woken with verbal stimuli, encouraged to use IS and take deep breaths. Pt continue to fall asleep with bradypnea, see post op VS. BP and pulse stable. O2 via NC applied and proposal manager writer remained in the room for about 30min monitoring and encouraging pt to take breaths. At about 1830, pt more alert and making conversation. Instructed to take breaths when alarm goes. Police Shift Commander did not need to intervene rest of shift. Pt nausea kept pt from ordering dinner. Did eat jello and is drinking water slowly. IV fluids continued.
[2024-09-11] MEDS: SENNOSIDES 1 TAB TABLET 2 TAB PO (21:36)
[2024-09-11] MEDS: HYDRALAZINE 25 MG TABLET 50 MG PO (21:36)
[2024-09-11] MEDS: OXYCODONE 5 MG TABLET PO (21:37)
[2024-09-12] MEDS: CEFAZOLIN 3 GM in 0.9 % SODIUM CHLORIDE Mini-bag 100 ML IVPB (00:54)
[2024-09-12] MEDS: HYDROmorphone 0.5 mg/0.5 ml inj IVP (01:05)
[2024-09-12 03:00] VITALS: BP 158/79; PULSE 58; RESP 18; TEMP 37.1; O2SAT 95
[2024-09-12] MEDS: ACETAMINOPHEN 500 MG TABLET 1000 MG PO ×2 (03:54→09:52)
[2024-09-12 06:54] LABS: Basophils Absolute Auto 0.02 K/uL (0.00-0.30); Basophils Percent Auto 0.3 % (0.0-3.0); Eosinophils Percent Auto 1.5 % (0.0-7.0); Hematocrit 37.9 % (33.0-51.0); Hemoglobin* 12.6 gm/dL (12.0-16.0); Immature Granulocytes Abs Auto 0.01 K/uL (0.00-0.30); Immature Granulocytes Pct Auto 0.1 %; Lymphocytes Percent Auto 16.6 % (20-44); Mean Corpuscular HGB Conc 33 gm/dL (32-36); Mean Corpuscular Hemoglobin 31 pg (26-34); Mean Corpuscular Volume 92 fL (80-100); Monocytes Percent Auto 10.6 % (0.0-11.0); Neutrophils Absolute Auto 4.75 K/uL (1.7-7.0); Neutrophils Percent Auto 70.9 % (42.0-72.0); Platelet Count* 145 K/uL (140-440); RDW Coefficient of Variation % 12.6 % (11.5-15.5); Red Blood Count 4.13 m/uL (4.00-5.20)
--- NOTE | 2024-09-12 06:58 | PC.NURSE ---
Pt alert, oriented and vitally stable. Pt pain rated 4-7/10 throughout shift, prn oxy and dilaudid given with some relief, monitored for signs of resp. Depression, O2 remained in the low 90s with occasional dips to the upper 80s. Placed on 2L O2 but weaned off through shift, now on room air. Pt up moving via SBA and tolerates well. Pt appears to be resting comfortably, call light within reach.?
[2024-09-12 07:00] VITALS: BP 150/72; PULSE 75; RESP 18; TEMP 36.1; O2SAT 96
[2024-09-12 07:10] LABS: INR 0.95 (0.91-1.10); Prothrombin Time 13.3 Seconds
[2024-09-12 07:14] LABS: Potassium* 4.2 mmol/L (3.6-5.1); Sodium* 133 mmol/L (135-149)
[2024-09-12 07:17] LABS: Blood Urea Nitrogen* 27 mg/dL (7-30); Creatinine* 0.7 mg/dL (0.5-1.5); Estimated Glomerular Filt Rate 90 ml/min
[2024-09-12 07:18] LABS: Slide Review Reflex No
--- NOTE | 2024-09-12 08:19 | PM.ORPN ---
Subjective Subjective Time Seen by Provider: 07:20 Date Seen: 09/12/24 Principal diagnosis: Status post left knee replacement Interval history: Poonam is comfortable. She ambulates to the restroom with ease with a walker and no assist. Her [place] joints her this morning. She denies nausea, vomiting, lightheadedness. Ortho Exam Narrative Exam Narrative: Alert and oriented x3. Patient is in no acute distress. Converses without labored breathing. Hearing is grossly intact. Ambulates with a walker. Examination of the left lower extremity shows the dressing is intact. No erythema or warmth or sign of infection. Minimal edema. Calves are soft and nontender. Tenderness over the lower legs distal to the calves. Hemosiderin stain in this area of the legs. CMS intact left lower extremity. Const Vital Signs, click to edit/add: Vital Signs - 24 hr 09/11/24 08:38 09/11/24 09:40 09/11/24 09:45 Temperature 98.1 F Pulse Rate 56 L 55 L 56 L Pulse Rate [Pulse Oximeter] Respiratory Rate 16 16 16 Blood Pressure 182/72 H 164/69 H 156/67 H Blood Pressure [Left Arm] Pulse Oximetry 96 98 98 Oxygen Delivery Method Room Air Nasal Cannula Nasal Cannula Oxygen Flow Rate 2 2 09/11/24 09:50 09/11/24 09:55 09/11/24 13:30 Temperature 96.8 F L Pulse Rate 55 L 56 L 49 L Pulse Rate [Pulse Oximeter] Respiratory Rate 16 16 16 Blood Pressure 143/67 H 142/66 H 119/51 L Blood Pressure [Left Arm] Pulse Oximetry 98 98 92 Oxygen Delivery Method Nasal Cannula Nasal Cannula Room Air Oxygen Flow Rate 2 2 09/11/24 13:35 09/11/24 13:40 09/11/24 13:45 Temperature Pulse Rate 44 L 44 L 43 L Pulse Rate [Pulse Oximeter] Respiratory Rate 14 16 13 Blood Pressure 107/52 L 113/55 L 114/57 L Blood Pressure [Left Arm] Pulse Oximetry 96 94 96 Oxygen Delivery Method Oxygen Flow Rate 09/11/24 13:50 09/11/24 13:54 09/11/24 14:05 Temperature 97.1 F L Pulse Rate 45 L 44 L 46 L Pulse Rate [Pulse Oximeter] Respiratory Rate 12 14 20 Blood Pressure 116/59 L 128/55 L 130/66 Blood Pressure [Left Arm] Pulse Oximetry 95 97 96 Oxygen Delivery Method Room Air Oxygen Flow Rate 09/11/24 14:15 09/11/24 14:30 09/11/24 14:45 Temperature 96.2 F L Pulse Rate 45 L 45 L 48 L Pulse Rate [Pulse Oximeter] Respiratory Rate 20 20 16 Blood Pressure 131/62 141/105 H 124/68 Blood Pressure [Left Arm] Pulse Oximetry 96 93 96 Oxygen Delivery Method Room Air Room Air Room Air Oxygen Flow Rate 09/11/24 15:00 09/11/24 15:00 09/11/24 15:00 Temperature 96.6 F L Pulse Rate 46 L Pulse Rate [Pulse Oximeter] 58 L Respiratory Rate 16 16 Blood Pressure 105/56 L Blood Pressure [Left Arm] Pulse Oximetry 96 94 Oxygen Delivery Method Room Air Room Air Oxygen Flow Rate 09/11/24 15:30 09/11/24 16:00 09/11/24 17:00 Temperature Pulse Rate 51 L 50 L 58 L Pulse Rate [Pulse Oximeter] Respiratory Rate Blood Pressure 143/69 H 140/62 H 138/65 Blood Pressure [Left Arm] Pulse Oximetry 94 96 96 Oxygen Delivery Method Room Air Room Air Room Air Oxygen Flow Rate 09/11/24 17:55 09/11/24 18:00 09/11/24 18:02 Temperature Pulse Rate 56 L 56 L Pulse Rate [Pulse Oximeter] Respiratory Rate 9 L 10 L 10 L Blood Pressure 155/68 H Blood Pressure [Left Arm] Pulse Oximetry 85 L 88 96 Oxygen Delivery Method Room Air Room Air Nasal Cannula Oxygen Flow Rate 2 09/11/24 18:12 09/11/24 18:18 09/11/24 18:30 Temperature Pulse Rate 56 L 54 L Pulse Rate [Pulse Oximeter] Respiratory Rate 12 12 12 Blood Pressure Blood Pressure [Left Arm] Pulse Oximetry 95 95 93 Oxygen Delivery Method Nasal Cannula Nasal Cannula Room Air Oxygen Flow Rate 1.5 1.5 09/11/24 20:00 09/11/24 22:37 09/11/24 22:38 Temperature Pulse Rate 55 L Pulse Rate [Pulse Oximeter] Respiratory Rate 18 18 Blood Pressure 148/79 H Blood Pressure [Left Arm] Pulse Oximetry 90 91 Oxygen Delivery Method Nasal Cannula Nasal Cannula Oxygen Flow Rate 1.5 2 09/11/24 23:00 09/12/24 03:00 09/12/24 07:00 Temperature 98.6 F 98.7 F 97.0 F L Pulse Rate Pulse Rate [Pulse Oximeter] 59 L 58 L 75 Respiratory Rate 18 18 18 Blood Pressure Blood Pressure [Left Arm] 155/70 H 158/79 H 150/72 H Pulse Oximetry 95 95 96 Oxygen Delivery Method Room Air Room Air Room Air Oxygen Flow Rate Assessment and Plan Assessment and plan (1) Status post total knee replacement, left: Problem details: 09/11/2024; Dr. Smith Status: Acute Assessment and Plan: Plan for discharge is today to home if they meet discharge criteria. DVT prophylaxis includes Xarelto 10 mg daily for 30 days due to her history of PE and DVT., Compression stockings as needed for swelling. Frequent ambulation, every hour throughout the day. Remove dressing in 1 week. Observe wound and phone Orthopedics with any questions or concerns Return to clinic in 1 week for a wound check Return to clinic in 6 weeks with surgeon Minimize narcotic use. Wean off and discontinue soon as possible. Activities as tolerated. No strenuous activity. Outpatient physical therapy as scheduled. Ice and elevate the operative extremity. No restriction on ice.
[2024-09-12] MEDS: RIVAROXABAN 10 MG TABLET PO (08:45)
[2024-09-12] MEDS: SENNOSIDES 1 TAB TABLET 2 TAB PO (08:45)
[2024-09-12] MEDS: LOSARTAN POTASSIUM 50 MG TABLET 100 MG PO (08:45)
[2024-09-12] MEDS: OXYCODONE 5 MG TABLET PO ×2 (08:45→11:01)
--- NOTE | 2024-09-12 12:48 | PC.NURSE ---
Discharge: The patient discharged home this AM with her , the patients pain is still moderate upon discharge, PRN oxycodone was given prior to dx. L knee dressing is CDI, moving well with SBA w/ RW. 2 active ice packs were sent home with the patient. All questions were answered regarding S/S to follow up on/ when to go into the ER. Na JONES BSN
== END 2024-09-12 11:15 | disposition home or self-care (01) ==
LOC: OR 08:19 → MEDSURG 08:22
PROVIDERS: PCP Family Medicine; Visit Provider Orthopaedic Surgery
PROC: (CPT 27447; principal; 2024-09-11 10:15)
DX: M17.12 Unilateral primary osteoarthritis, left knee (principal); G89.18 Other acute postprocedural pain; Z68.42 Body mass index [BMI] 45.0-49.9, adult; E11.9 Type 2 diabetes mellitus without complications; E66.01 Morbid (severe) obesity due to excess calories; G47.33 Obstructive sleep apnea (adult) (pediatric); I10 Essential (primary) hypertension; I27.20 Pulmonary hypertension, unspecified; Z86.718 Personal history of other venous thrombosis and embolism; Z86.711 Personal history of pulmonary embolism; Z79.01 Long term (current) use of anticoagulants
CPT/HCPCS: 27447; 01402; 36415; 64447; 64454; 73560; 76942; 82565; 84132; 84295; 84520; 85025; 85610; 97110; 97116; 97162; 97165; 97535; 99100; A9270; C1776; J0665; J0690; J1171; J2250; J2405; J2704; J3010; J7120

== ENCOUNTER 2024-09-25 15:28 | Outpatient (CLI) | payer MEDICARE, SELFPAY ==
--- NOTE | 2024-09-25 16:00 | CRLHL7_ITS ---
For Patients: As a result of the Century Cures Act, medical imaging exams and procedure reports are released immediately into your electronic medical record. You may view this report before your referring provider. If you have questions, please contact your health care provider. INDICATION: Presence of left artificial knee joint. Pain in calf, increased swelling, redness. COMPARISON: None. TECHNIQUE: A compression venous ultrasound exam was performed of the left lower extremity using ford-scale imaging, color Doppler, and spectral Doppler analysis. FINDINGS: Sonographic imaging of the left lower extremity demonstrates normal compressibility and color Doppler venous blood flow within the common femoral, femoral, deep femoral, and proximal greater saphenous veins. At a lower level the popliteal, peroneal, and posterior tibial veins also show normal compressibility and color Doppler venous blood flow. Limited imaging of the contralateral groin demonstrates a normal spectral waveform and color Doppler venous blood flow within the right common femoral vein. IMPRESSION: Negative for acute DVT in the left lower extremity. Dictated by Harriett Jalloh MD @ 09/26/2024 3:00:44 AM (Electronically Signed)
== END 2024-09-25 15:29 | disposition home or self-care (01) ==
LOC: US 15:29
PROVIDERS: PCP Family Medicine; Visit Provider Physician Assistant Surgical
DX: M79.605 Pain in left leg (principal); Z96.652 Presence of left artificial knee joint
CPT/HCPCS: 93971

== ENCOUNTER 2025-02-17 09:45 | Observation (INO) | payer MEDICARE, SELFPAY ==
[2025-02-17] VITALS (13 sets, daily range): BP systolic 123–215; BP diastolic 57–86; PULSE 55–65; RESP 17–30; TEMP 36.5–37; O2SAT 90–99; BMI 42.9; BMI 44.4
--- OUTSIDE RECORDS SUMMARY | 2025-02-17 09:47 | XMS_ITS | Clinical Summary ---
Author Organization [facility] Address [address] [place] [id number] Care Team Providers Care Precision Thread Grinder Operator Name Role Phone Luis Fonseca MD Primary Care Provider + Allergies Active Allergy Reactions Criticality Noted Date Comments Diatrizoate Allergen Rash,Itching 07/02/2014 Lisinopril Cough 06/30/2021 Penicillins *Unknown 06/11/2014 Lisinopril-Hydrochlorothiazide *Unknown 06/11 Medications amLODIPine (NORVASC) 10 mg tabletIndications:HT N (hypertension) Take 10 mg by mouth at bedtime. 0 06/11/20 14 Active Graduated Compression StockingsIndications :Venous insufficiency,Varico se veins of lower extremity, unspecified laterality, unspecified whether complicated,Edema, unspecified type For personal use. Length: calf Strength: 20-30 mmHg 1 Packet 06/30/20 21 Active potassium chloride (KLOR-CON M20) 20 mEq Extended-Release tabletIndications:SO B (shortness of breath) Take 1 Tablet (20 mEq) by mouth once daily with a meal. 90 Tablet 1 04/29/20 22 Active chlorthalidone (HYGROTON) 25 mg tabletIndications:Pu lmonary valve stenosis, unspecified etiology Take 1 Tablet (25 mg) by mouth once daily. 90 Tablet 1 04/29/20 22 Active apixaban (ELIQUIS) 5 mg tabletIndications:pr evention of venous thromboembolism recurrence Take 2.5 mg by mouth in the morning and 2.5 mg in the evening. Active metFORMIN (GLUCOPHAGE) 500 mg tabletIndications:Ty pe 2 diabetes mellitus without complication, without long-term current use of insulin (HC) [The details of the medication are not available because there are pending changes by a home health clinician.] 60 Tablet 06/01/20 Active Additional Information Patient not taking.Informant: Patient's Recall, Reported on 08/04/2022 sennosides-docusate (SENOKOT S) (8.6-50 mg) tabletIndications:Bi liary dyskinesia [The details of the medication are not available because there are pending changes by a home health clinician.] 20 Tablet 06/30/20 Active Additional Information Patient not taking.Reason: See Comment (not taking), Reported on 08/10/2022 ondansetron (ZOFRAN ODT) 4 mg disintegrating tabletIndications:Na usea [The details of the medication are not available because there are pending changes by a home health clinician.] 30 Tablet 07/08/20 Active Additional Information Patient not taking.Reported on 08/04/2022 traMADoL (ULTRAM) 50 mg tabletIndications:Na usea [The details of the medication are not available because there are pending changes by a home health clinician.] 24 Tablet 07/08/20 Active Additional Information Patient not taking.Informant: Patient's Recall, Reported on 08/04/2022 cholestyramine-sucro se 4 G (QUESTRAN) 4 gram packetIndications:Di arrhea following gastrointestinal surgery [The details of the medication are not available because there are pending changes by a home health clinician.] 28 Packet 07/08/20 Active Additional Information Patient not taking.Informant: Patient's Recall, Reported on 08/04/2022 WalkerIndications:Ve ntral hernia without obstruction or gangrene Walker with front wheels for home use for 999 days. 1 Each 07/29/20 Active oxyCODONE (ROXICODONE) 5 mg immediate release tabletIndications:Re current ventral hernia with incarceration [The details of the medication are not available because there are pending changes by a home health clinician.] 10 Tablet 2 11:30 AM CDT 07/30/20 Active Additional Information Patient not taking.Reason: See Comment (not taking), Reported on 08/10/2022 psyllium husk, with sugar, (METAMUCIL) 3.4 gram packetIndications:Di arrhea, unspecified type [The details of the medication are not available because there are pending changes by a home health clinician.] 30 Packet 08/01/20 Active Additional Information Patient not taking.Reason: See Comment (not taking), Reported on 08/10/2022 metoprolol succinate (TOPROL XL) 100 mg Sustained-Release tabletIndications:HT N (hypertension) Take 1 Tablet (100 mg) by mouth once daily. 30 Tablet 08/02/20 Active losartan (COZAAR) 50 mg tabletIndications:HT N (hypertension) Take 1 Tablet (50 mg) by mouth two times daily. 30 Tablet 08/01/20 Active Wheat Dextrin (Benefiber) 1 gram chew 2 Tablets two times daily. Active ondansetron (ZOFRAN) 4 mg tablet TAKE ONE TABLET BY MOUTH EVERY 12 HOURS FOR NAUSEA AND VOMITING. 07/02/20 Active hydrALAZINE (APRESOLINE TABLET) 50 mg tabletIndications:HT N (hypertension) Take 1 Tablet (50 mg) by mouth three times daily. 270 Tablet 4 06/28/20 Active Active Problems Problem Noted Date Diagnosed Date DM type 2 (diabetes mellitus, type 2) 07/26/2022 History of DVT of left lower extremity 2 Chronic anticoagulation 07/24/2022 Recurrent ventral hernia with [...] Prediabetes 06/30/2022 07/26/2022 Abdominal pain 05/29/2022 07/25/2022 Immunizations Immunization Administration Dates Next Due Pneumococcal, Unspecified 05/10/2017(Deferred: [...] Paying Living Expenses Not on file 10/10/2021 Comments No Sex and Gender Information Value Date Recorded Sex Assigned at Not on file Legal Sex Female 6:19 AM MENTAL HEALTH PROGRAM DIRECTOR Gender Identity Not on file Sexual Orientation Not on file Obstetrics History Last Filed Vital Signs Vital Sign Reading Time Taken Comments Blood Pressure 122/66 08/26/2022 12:09 PM MENTAL HEALTH PROGRAM DIRECTOR Pulse 53 08/26/2022 12:09 PM MENTAL HEALTH PROGRAM DIRECTOR Temperature 36.8 C (98.3 F) 08/26/2022 12:09 PM MENTAL HEALTH PROGRAM DIRECTOR Respiratory Rate 18 08/26/2022 12:09 PM MENTAL HEALTH PROGRAM DIRECTOR Oxygen Saturation 95% 08/26/2022 12:09 PM MENTAL HEALTH PROGRAM DIRECTOR Inhaled Oxygen Concentration - - Weight 122.9 kg (271 lb) 07/31/2022 3:00 AM CDT Height 167.6 cm (5' 6) 07/29/2022 9:00 AM CDT Body Mass Index 43.74 07/29/2022 9:00 AM CDT Plan of Treatment Health Maintenance Due Date Last Done Comments Tdap 1960 Depression screening for age 12+ 1961 Hepatitis C screening for age 18-79 1967 Pneumococcal series for age 50+ (1 of 2 - PCV) 1968 Tetanus booster 1969 Colonoscopy through age 75 1994 Lipids for age 45-75 1994 Zoster (shingles) series for age 50+ (1 of 2) 1999 DEXA/DXA scan for age 65+ 2014 Medicare Wellness for age 65+ 2014 BMI (ht and wt on same day) for age 18+ 05/05/2023 0 05/05/2022, 06/30/2021 COVID-19 vaccine series ( season) 2024 02/03/2021, 01/02/2021 RSV vaccine for adults or pr egnancy (1 - 1-dose 75+ series) 2024 Influenza Vaccine (Season Ended) 2025 Insurance MEDICARE PART A HB ONLY [employer] MEDICARE ADVANTAGE HC UCARE MEDICARE PDGM Advance Directives * Full Code (Latest Code [...] Code Status Discussion: Reviewed Preferences Care Teams Precision Thread Grinder Operator Relationship Specialty Start Date End Date Luis Fonseca MD [address] [place] [id number] PCP - General Family Practice 07/24/22
--- OUTSIDE RECORDS SUMMARY | 2025-02-17 09:47 | XMS_ITS | Clinical Summary ---
Author Organization [facility] Address [address] [address] Care Team Providers Care Athletic Agent Name Role Phone Patrick Mattson MD Primary Care Provider [phone] Source Comments You are receiving this document as you are listed as the primary care provider,follow-up provider, or the patient has been referred to you for consultation.This is in compliance with the Medicare and[facility] EHR Incentive Program,which states Providers who transition their patient to another setting of careor provider of care or refers their patient to another provider of care shouldprovide summary care record for each transition of care or referral. [facility] Allergies Active Allergy Reactions Criticality Noted Date Comments Penicillins Rash 09/24/2021 Medications ATENolol-chlorth alidone (TENORETIC) 50-25 MG tablet Take 1 Tablet [...] Years Used Date Smoking Tobacco: Never Assessed Comments Unknown Sex and Gender Information Value Date Recorded Sex Assigned at Not on file Legal Sex Female 4:38 AM CDT Gender Identity Not on file Sexual Orientation Not on file Last Filed Vital Signs Vital Sign Reading Time Taken Comments Blood Pressure 144/69 09/24/2021 9:37 AM DIRECTOR OF GOLF Pulse 61 09/24/2021 9:37 AM DIRECTOR OF GOLF Temperature - - Respiratory Rate - - Oxygen Saturation 95% 09/24/2021 9:37 AM DIRECTOR OF GOLF Inhaled Oxygen Concentration - - Weight 133.8 kg (295 lb) 09/24/2021 9:37 AM DIRECTOR OF GOLF Height 170.2 cm (5' 7) 09/24/2021 9:37 AM DIRECTOR OF GOLF Body Mass Index 46.2 09/24/2021 9:37 AM DIRECTOR OF GOLF Plan of Treatment Health Maintenance Due Date Last Done Comments Colon Cancer Screening Plan Due 1950 Hep C Screening (Preventive Services) 1950 Medicare Annual Wellness Visit 1950 Mammogram 1950 DTaP/Tdap/Td Vaccine (1 - Tdap) 1968 Pneumococcal Vaccine 50+ Yrs (1 of 1 - PCV) 1999 Zoster/Shingles Vaccine (1 o f 2) 1999 Dexa 2014 COVID-19 Vaccine (3 - 2023-2 5 season) 2024 02/03/2021, 01/02/2021 RSV Vaccine (1 - 1-dose 75+ series) 2024 Influenza Vaccine (Season Ended) 2025 HepA Vaccine Aged Out No longer eligi ble based on patient's age to complete this topic HepB Vaccine Aged Out No longer eligi ble based on patient's age to complete this topic Hib Vaccine Aged Out No longer eligi ble based on patient's age to complete this topic IPV (Polio) Vaccine Aged Out No longe r eligible based on patient's age to complete this topic MCV4 Vaccine Aged Out No longer eligi ble based on patient's age to complete this topic Meningococcal B Vaccine Aged Out No l onger eligible based on patient's age to complete this topic Insurance MEDICARE MANAGED CARE BS BCBS [place] Care Teams Athletic Agent Relationship Specialty Start Date End Date Patrick Mattson MD [address] [place] [id number] PCP - General Family Practice 09/24/21
--- OUTSIDE RECORDS SUMMARY | 2025-02-17 09:47 | XMS_ITS | Continuity of Care Document ---
Author Organization [facility] Address [address] [address] Insurance Providers Payer Plan Claims Address Claims Phone Policy Number Group Number Relation Employer Guarantor Name Guarantor Guarantor Address Guarantor Phone MEDICA RE MEDIC ARE tel:[phone] Self chandler cotto 1950 [id number] [place] [address] BCBS BCBS [address] [address], [place] [address] tel:[phone] Self chandler cotto 1950 [address] [place] [address] MEDICA RE PART A - HB USE ONLY MEDIC ARE PART A - HB USE ONLY ATTN: CLAIMS, [address], [facility] [place] [phone] Self chandler cotto 1950 [address] [place] [address] Problems Condition ICD9 code ICD10 code SNOMED code Start Date End Date S tatus Encounter for screening for other metabolic disorders Z13.228 Cough, unspecified R05.9 Wheezing R06.2 Acute bronchitis, unspecified J20.9 Subacute cough R05.2 Pulmonary hypertension, unspecified I27.20 Pulmonary hypertension, unspecified I27.20 Encounter for screening, unspecified Z13.9 Presence of left artificial knee joint Z96.652 Personal history of pulmonary embolism Z86.711 Obstructive sleep apnea (adult) (pediatric) G47.33 Presence of left artificial knee joint Z96.652 Personal history of pulmonary embolism Z86.711 Personal history of other venous thrombosis and embolism Z86.718 Essential (primary) hypertension I10 Obstructive sleep apnea (adult) (pediatric) G47.33 Presence of left artificial knee joint Z96.652 Prediabetes R73.03 Personal history of pulmonary embolism Z86.711 Personal history of other venous thrombosis and embolism Z86.718 Essential (primary) hypertension I10 Obstructive sleep apnea (adult) (pediatric) G47.33 Results No Results Allergies, adverse reactions, alerts No known allergies and adverse reactions Medications No administered medications reported Vital Signs No vital signs reported Social History No smoking Hx information available
--- NOTE | 2025-02-17 10:16 | ED.GENADULT ---
HPI - General Adult General Time Seen by Provider: 10:16 Date Seen: 02/17/25 Chief complaint: Nausea/Vomiting Stated complaint: Stomach Pain/Vomiting Time Seen by Provider: 02/17/25 10:16 Source: patient, RN notes reviewed and old records reviewed Mode of arrival: ambulatory Limitations: no limitations History of Present Illness HPI narrative: Patient is a very pleasant 74-year-old female with a history of PE, DVT, SVT, pulmonary hypertension, hernia repair 2 and half years ago, diverticulitis greater than 1 decade ago who comes to the emergency room with vomiting for 3 days. Patient notes the onset of vomiting on Tuesday night February 15. Since that time she has had persistent vomiting. No diarrhea but reports that she has had thread like stools. She does agree that she feels like her but belly is distended. She has some pain in the lower aspect of the abdomen but states that it would come and go in waves. She is reporting chills. No dysuria hematuria. According to nursing staff patient notes some chest pain fleeting. She did not report this to me. No shortness of breath cough. No ill contacts recently. Patient's presents with her and is very loving and supportive. Related Data Home Medications ?Medication ?Instructions ?Recorded ?Confirmed hydralazine 50 mg tablet 50 mg PO TID 08/29/24 02/17/25 amlodipine 10 mg tablet 10 mg PO HS 09/11/24 02/17/25 chlorthalidone 25 mg tablet 25 mg PO DAILY 09/11/24 02/17/25 Previous Rx's ?Medication ?Instructions ?Recorded losartan 100 mg tablet 100 mg PO DAILY #90 tabs 12/26/23 acetaminophen 500 mg capsule 500 - 1,000 mg (1 - 2 x 500 mg) PO 09/11/24 Q6H PRN pain #100 caps sennosides 8.6 mg tablet (Senna 17.2 mg (2 x 8.6 mg) PO BID PRN 09/11/24 Lax) constipation #100 tabs Allergies Allergy/AdvReac Type Severity Reaction Status Date / Time diatrizoate meglumine Allergy Unknown Rash & Verified 02/17/25 10:04 Itching hydrochlorothiazide (From Allergy Unknown Unknown Verified 02/17/25 10:04 Zestoretic) Iodinated Contrast Media Allergy Unknown Rash & Verified 02/17/25 10:04 Itching Penicillins Allergy Unknown Unknown Verified 02/17/25 10:04 lisinopril AdvReac Unknown Cough Verified 02/17/25 10:04 Review of Systems Status of ROS: Reports: 10 or more systems reviewed and unremarkable except as noted in History and below Const: Reports: chills and fatigue; Denies: fever Eyes: Denies: change in vision ENMT: Denies: throat pain or nasal congestion Cardio: Reports: chest pain; Denies: swelling of feet/ankles or shortness of breath with exertion Resp: Denies: shortness of breath or cough GI: Reports: abdominal pain, nausea and vomiting; Denies: diarrhea : Denies: painful urination Endo: Reports: fatigue PFSH [facility] Medical History (Updated 02/17/25 @ 15:11 by Macarena Ocampo MD) Abnormal echocardiogram ?R93.1 - Abnormal findings on diagnostic imaging of heart and coronary circulation (ICD-10) Prediabetes ?R73.03 - Prediabetes (ICD-10) Wheezing (08/09/24) ?R06.2 - Wheezing (ICD-10) Ventral hernia without obstruction or gangrene (06/28/22) ?K43.9 - Ventral hernia without obstruction or gangrene (ICD-10) Subacute cough (08/09/24) ?R05.2 - Subacute cough (ICD-10) Recurrent ventral hernia with incarceration (07/24/22) ?K43.0 - Incisional hernia with obstruction, without gangrene (ICD-10) Preoperative examination (06/28/22) ?Z01.818 - Encounter for other preprocedural examination (ICD-10) Obesity, morbid, BMI 40.0-49.9 (06/28/22) ?E66.01 - Morbid (severe) obesity due to excess calories (ICD-10) HTN (hypertension) (07/01/14) ?I10 - Essential (primary) hypertension (ICD-10) Encounter for screening, unspecified (08/29/24) ?Z13.9 - Encounter for screening, unspecified (ICD-10) Encounter for screening for other metabolic disorders ?Z13.228 - Encounter for screening for other metabolic disorders (ICD-10) DVT (deep venous thrombosis) (05/29/22) ?I82.409 - Acute embolism and thrombosis of unspecified deep veins of unspecified lower extremity (ICD-10) Cough, unspecified (08/09/24) ?R05.9 - Cough, unspecified (ICD-10) Chronic anticoagulation (07/24/22) ?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.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 (ICD-10) Biliary dyskinesia (06/28/22) ?K82.8 - Other specified diseases of gallbladder (ICD-10) Acute dehydration (06/28/22) ?E86.0 - Dehydration (ICD-10) Acute bronchitis, unspecified (08/09/24) ?J20.9 - Acute bronchitis, unspecified (ICD-10) History of deep venous thrombosis (DVT) of distal vein of right lower extremity (03/19/21) ?Z86.718 - Personal history of other venous thrombosis and embolism (ICD-10) History of pulmonary embolus (PE) (04/09/21) ?Z86.711 - Personal history of pulmonary embolism (ICD-10) SVT (supraventricular tachycardia) (07/2022) ?I47.10 - Supraventricular tachycardia, unspecified (ICD-10) Osteoarthritis of left knee ?M17.12 - Unilateral primary osteoarthritis, left knee (ICD-10) Primary hypertension ?I10 - Essential (primary) hypertension (ICD-10) Chronic nausea ?R11.0 - Nausea (ICD-10) Osteoarthritis of right knee ?M17.11 - Unilateral primary osteoarthritis, right knee (ICD-10) Chronic left hip pain ?M25.552 - Pain in left hip (ICD-10) ?G89.29 - Other chronic pain (ICD-10) Chronic left shoulder pain ?M25.512 - Pain in left shoulder (ICD-10) ?G89.29 - Other chronic pain (ICD-10) Chronic neck pain ?M54.2 - Cervicalgia (ICD-10) ?G89.29 - Other chronic pain (ICD-10) History of COVID-19 (06/2022) ?Z86.16 - Personal history of COVID-19 (ICD-10) Pulmonary hypertension ?I27.20 - Pulmonary hypertension, unspecified (ICD-10) Thyroid nodule ?E04.1 - Nontoxic single thyroid nodule (ICD-10) MARISOL (obstructive sleep apnea) ?G47.33 - Obstructive sleep apnea (adult) (pediatric) (ICD-10) Surgical History Status post total knee replacement, left (09/11/24) ?Z96.652 - Presence of left artificial knee joint (ICD-10) Incarcerated ventral hernia (07/23/22) ?K43.6 - Other and unspecified ventral hernia with obstruction, without gangrene (ICD-10) History of total abdominal hysterectomy and bilateral salpingo-oophorectomy (12/26/98) ?Z90.710 - Acquired absence of both cervix and uterus (ICD-10) ?Z90.722 - Acquired absence of ovaries, bilateral (ICD-10) ?Z90.79 - Acquired absence of other genital organ(s) (ICD-10) History of tubal ligation (1984) ?Z98.51 - Tubal ligation status (ICD-10) History of laparoscopic cholecystectomy (06/29/22) ?Z90.49 - Acquired absence of other specified parts of digestive tract (ICD-10) Family History Father Stroke, Onset Age: 82 Brother Lung cancer Sister Uterine cancer Thyroid disease Mother Coronary artery disease Social History (Updated 02/17/25 @ 14:40 by Macarena Ocampo MD) Narrative: , five kids, retired from [employer], nonsmoker, denies ETOH or recreational drug use. What is your current living situation?: I presently have a place to live Problems where you live: no known problems Problems where you live details: n/a In the past 12 months, utilities in danger of being shut off: no In past 12 months, lack of transportation kept you from medical appts, meetings, work, or getting things needed for daily living: no In the past 12 mos, have been you worried that your food would run out before you had money to buy more?: never true In the past 12 mos, the food you bought just didn't last and you didn't have money to buy more?: never true Highest level of school completed/degree received: Associate degree: academic program Smoking Status: Never smoker How often do you have a drink containing alcohol: monthly or less How many standard drinks containing alcohol do you have on a typical day: 1 or 2 AUDIT-C Alcohol total score: 1 Non-prescribed substance use: denies use Caffeine: Yes (coffee, 2 cups/day) How often does anyone, including family, friends and others, physically hurt you: never How often does anyone, including family, friends and others, insult or talk down to you: never How often does anyone, including family, friends and others, threaten you with harm: never How often does anyone, including family, friends and others, scream or curse at you: never service: No Exam Narrative: Exam Narrative: Patient is alert and oriented. She does appear to be in distress and is breathing quite fast. Eyes are clear head is atraumatic face symmetrical speech is normal heart with a regular rate and rhythm lungs are clear bilaterally abdomen is obese it is soft minimal tenderness noted in the left lower quadrant. I do not palpate any bulging masses. Lower extremities without edema. Const: Vital Signs, click to edit/add: Vital Signs - 24 hr 02/17/25 09:56 02/17/25 10:28 02/17/25 11:11 Temperature 97.7 F Pulse Rate 61 Pulse Rate [Pulse Oximeter] 60 Respiratory Rate 24 17 Blood Pressure 208/75 H Blood Pressure [Le ft Arm] Blood Pressure [Ri ght Upper Arm] 186/83 H Pulse Oximetry 98 96 98 Oxygen Delivery Me thod Room Air 02/17/25 11:15 02/17/25 12:00 02/17/25 12:10 Temperature 98.6 F Pulse Rate 59 L 56 L Pulse Rate [Pulse Oximeter] 55 L Respiratory Rate 23 30 H 20 Blood Pressure Blood Pressure [Le ft Arm] 206/81 H Blood Pressure [Ri ght Upper Arm] Pulse Oximetry 99 95 95 Oxygen Delivery Me thod Documenting provider has reviewed patient's vital signs: yes Course Course ED Course: Differential diagnosis includes but is not limited to bowel obstruction, diverticulitis, colitis, viral gastroenteritis, UTI. Will check CBC, comprehensive panel, CRP, lactate, urinalysis, chest x-ray. Will give 1 L of normal saline, Zofran 4 mg, morphine 4 mg. Will also check EKG and troponin. Initial plan was to abdominal pelvic CT with contrast but given patient's allergy will do CT without. Reevaluation(s) Reevaluation #1: patient noted to have continued vomiting after Zofran. We did give 1 dose of Benadryl but patient had continued vomiting. We then switched to Phenergan 12.[address] has come back reassuring. White count within normal limits and CRP is normal. LFTs within normal limits 4+ urinary ketones is noted. With 5-10 RBCs. Patient is negative for COVID influenza and RSV. Initial troponin is negative. Vital Signs Vital signs: Initial Vital Signs Temperature 97.7 F 02/17/25 09:56 Temperature Source Temporal Artery Scan 02/17/25 09:56 Pulse Rate 60 02/17/25 09:56 Respiratory Rate 24 02/17/25 09:56 Blood Pressure 186/83 H 02/17/25 09:56 Blood Pressure Mean 117 H 02/17/25 09:56 Blood Pressure Position Sitting 02/17/25 09:56 Pulse Oximetry 98 02/17/25 09:56 Oxygen Delivery Method Room Air 02/17/25 09:56 Vital Signs Temperature 97.7 F 02/17/25 09:56 Pulse Rate 60 02/17/25 09:56 Respiratory Rate 24 02/17/25 09:56 Blood Pressure 186/83 H 02/17/25 09:56 Pulse Oximetry 98 02/17/25 09:56 Oxygen Delivery Method Room Air 02/17/25 09:56 Temperature 97.8 F 02/17/25 19:00 Pulse Rate 65 02/17/25 19:00 Respiratory Rate 18 02/17/25 19:00 Blood Pressure 188/75 H 02/17/25 19:00 Pulse Oximetry 92 02/17/25 19:00 Oxygen Delivery Method Room Air 02/17/25 19:00 Medications Administered Medications: Generic Name Dose Route Start Last Admin Trade Name Freq PRN Reason Stop Dose Admin Amlodipine Besylate 10 mg 02/17/25 21:00 02/17/25 20:39 Amlodipine 10 Mg Tablet PO 10 mg HS MICHELLE Administration Hydralazine HCl 50 mg 02/17/25 14:30 02/17/25 20:40 Hydralazine 25 Mg Tablet PO 50 mg TID MICHELLE Administration Lactated Ringer's 1,000 mls @ 125 mls/hr 02/17/25 14:06 02/17/25 14:34 Lactated Ringers 1000 Ml IV 125 mls/hr .Q8H MICHELLE Administration Losartan Potassium 100 mg 02/17/25 14:06 02/17/25 14:35 Losartan Potassium 50 Mg Tablet PO 100 mg DAILY MICHELLE Administration Pantoprazole Sodium 40 mg 02/17/25 14:30 02/17/25 14:35 Pantoprazole Sodium 40 Mg Inj IVP 40 mg Q24H MICHELLE Administration Sodium Chloride 5 ml 02/17/25 21:00 02/17/25 20:40 Sodium Chloride 0.9 % (Flush) 10 Ml Syringe IVF 5 ml BID MICHELLE Administration Discontinued Medications Generic Name Dose Route Start Last Admin Trade Name Freq PRN Reason Stop Dose Admin Diphenhydramine HCl 25 mg 02/17/25 11:06 02/17/25 11:09 Diphenhydramine 50 Mg/Ml Inj IVP 02/17/25 11:07 25 mg ONCE ONE Administration Diphenhydramine HCl 50 mg 02/17/25 14:23 02/17/25 15:03 Diphenhydramine 50 Mg/Ml Inj IVP 02/17/25 14:24 50 mg ONCE ONE Administration Hydrocortisone Sodium Succinate 200 mg 02/17/25 14:23 02/17/25 14:55 Hydrocortisone Sod Succinate 50 Mg/Ml Inj IVP 02/17/25 14:24 200 mg ONCE ONE Administration Sodium Chloride 1,000 mls @ 1,000 mls/hr 02/17/25 10:34 02/17/25 11:53 0.9 % Sodium Chloride 1000 Ml IV 02/17/25 11:33 Infused .Q1H MICHELLE Infusion Lorazepam 0.5 mg 02/17/25 14:06 02/17/25 14:35 Lorazepam 0.5 Mg Tablet PO 02/17/25 14:07 0.5 mg ONCE ONE Administration Methylprednisolone Sodium Succinate 40 mg 02/17/25 14:06 02/17/25 15:04 Methylprednisolone Sod Succ 40 Mg/Ml IVP 02/17/25 14:07 Not Given ONCE ONE Morphine Sulfate 4 mg 02/17/25 10:33 02/17/25 11:53 Morphine 4 Mg/Ml Inj IVP 02/17/25 10:34 Not Given ONCE ONE Ondansetron HCl 4 mg 02/17/25 10:33 02/17/25 10:30 Ondansetron 2 Mg/Ml Inj IVP 02/17/25 10:34 4 mg ONCE ONE Administration Promethazine HCl 12.5 mg 02/17/25 11:41 02/17/25 11:53 Promethazine 25 Mg/Ml Inj IVP 02/17/25 11:42 12.5 mg ONCE ONE Administration Medical Decision Making MDM Narrative Medical decision making narrative: 1. Vomiting-abdominal CT reassuring with no evidence of bowel obstruction or diverticulitis. Lactate 2.1 and white count within normal limits. Zofran 4 mg IV was given with continued nausea. Benadryl 25 mg given With continued nausea and retching. In 12.5 mg IV is given . Given persistent vomiting for greater than 36 hours will admit patient to our hospital for ongoing antiemetics and IV fluids. 2. Abdominal pain - The no peritoneal signs. Patient is given morphine 4 mg IV. 3.Disposition- Poonam is transfer to floor under the care of hospitalist Dr. Ocampo. Medical Records Medical records reviewed: Yes I reviewed the patient's medical records Lab Data Lab results reviewed: Yes I reviewed the patient's lab results Labs: Lab Results 02/17/25 02/17/25 02/17/25 Range/Units 10:25 10:25 10:25 WBC 6.72 (4.50-11.00) K/uL RBC 4.96 (4.00-5.20) m/uL Hgb 15.0 (12.0-16.0) gm/dL Hct 43.4 (33.0-51.0) % MCV 88 (80-100) fL MCH 30 (26-34) pg MCHC 35 (32-36) gm/dL RDW Coeff of Bayron 12.3 (11.5-15.5) % Plt Count 171 (140-440) K/uL Neut % (Auto) 76.9 H (42.0-72.0) % Lymph % (Auto) 16.8 L (20-44) % [place] % (Auto) 5.4 (0.0-11.0) % Eos % (Auto) 0.3 (0.0-7.0) % Baso % (Auto) 0.3 (0.0-3.0) % Neut # (Auto) 5.20 (1.7-7.0) K/uL Lymph # (Auto) 1.10 (0.90-2.90) K/uL [place] # (Auto) 0.40 (0.00-0.90) K/UL Eos # (Auto) 0.02 (0.00-0.50) K/uL Baso # (Auto) 0.02 (0.00-0.30) K/uL Abs Immat Gran (auto) 0.02 (0.00-0.30) K/uL Imm/Tot Granulo (auto) 0.3 % Sodium Cancelled 138 Potassium Cancelled 3.7 Chloride Cancelled Carbon Dioxide Anion Gap BUN Creatinine Estimated Creat Clear Estimated GFR Glucose Lactate (0.5-1.9) mmol/L Calcium Magnesium (1.5-2.6) mg/dL Total Bilirubin (0.1-1.5) mg/dL AST (12-35) U/L ALT (4-35) U/L Alkaline Phosphatase (40-150) U/L C-Reactive Protein (0.5-1.0) mg/dL Total Protein (6.0-8.3) g/dL Albumin (3.3-5.0) g/dL SARS-CoV-2 (PCR) (Negative) Influenza Type A (PCR) (Negative) Influenza Type B (PCR) (Negative) RSV (PCR) (Negative) POC Troponin I (0.01-0.04) ng/ml 02/17/25 02/17/25 02/17/25 Range/Units 10:25 10:25 10:25 WBC (4.50-11.00) K/uL RBC (4.00-5.20) m/uL Hgb (12.0-16.0) gm/dL Hct (33.0-51.0) % MCV (80-100) fL MCH (26-34) pg MCHC (32-36) gm/dL RDW Coeff of Bayron (11.5-15.5) % Plt Count (140-440) K/uL Neut % (Auto) (42.0-72.0) % Lymph % (Auto) (20-44) % [place] % (Auto) (0.0-11.0) % Eos % (Auto) (0.0-7.0) % Baso % (Auto) (0.0-3.0) % Neut # (Auto) (1.7-7.0) K/uL Lymph # (Auto) (0.90-2.90) K/uL [place] # (Auto) (0.00-0.90) K/UL Eos # (Auto) (0.00-0.50) K/uL Baso # (Auto) (0.00-0.30) K/uL Abs Immat Gran (auto) (0.00-0.30) K/uL Imm/Tot Granulo (auto) % Sodium Potassium Chloride 103 Carbon Dioxide Cancelled 22 Anion Gap Cancelled 13 BUN Cancelled Creatinine Estimated Creat Clear Estimated GFR Glucose Lactate (0.5-1.9) mmol/L Calcium Magnesium (1.5-2.6) mg/dL Total Bilirubin (0.1-1.5) mg/dL AST (12-35) U/L ALT (4-35) U/L Alkaline Phosphatase (40-150) U/L C-Reactive Protein (0.5-1.0) mg/dL Total Protein (6.0-8.3) g/dL Albumin (3.3-5.0) g/dL SARS-CoV-2 (PCR) (Negative) Influenza Type A (PCR) (Negative) Influenza Type B (PCR) (Negative) RSV (PCR) (Negative) POC Troponin I (0.01-0.04) ng/ml 02/17/25 02/17/25 02/17/25 Range/Units 10:25 10:25 10:25 WBC (4.50-11.00) K/uL RBC (4.00-5.20) m/uL Hgb (12.0-16.0) gm/dL Hct (33.0-51.0) % MCV (80-100) fL MCH (26-34) pg MCHC (32-36) gm/dL RDW Coeff of Bayron (11.5-15.5) % Plt Count (140-440) K/uL Neut % (Auto) (42.0-72.0) % Lymph % (Auto) (20-44) % [place] % (Auto) (0.0-11.0) % Eos % (Auto) (0.0-7.0) % Baso % (Auto) (0.0-3.0) % Neut # (Auto) (1.7-7.0) K/uL Lymph # (Auto) (0.90-2.90) K/uL [place] # (Auto) (0.00-0.90) K/UL Eos # (Auto) (0.00-0.50) K/uL Baso # (Auto) (0.00-0.30) K/uL Abs Immat Gran (auto) (0.00-0.30) K/uL Imm/Tot Granulo (auto) % Sodium Potassium Chloride Carbon Dioxide Anion Gap BUN 19 Creatinine Cancelled 0.7 Estimated Creat Clear Cancelled 45.50 Estimated GFR Cancelled Glucose Lactate (0.5-1.9) mmol/L Calcium Magnesium (1.5-2.6) mg/dL Total Bilirubin (0.1-1.5) mg/dL AST (12-35) U/L ALT (4-35) U/L Alkaline Phosphatase (40-150) U/L C-Reactive Protein (0.5-1.0) mg/dL Total Protein (6.0-8.3) g/dL Albumin (3.3-5.0) g/dL SARS-CoV-2 (PCR) (Negative) Influenza Type A (PCR) (Negative) Influenza Type B (PCR) (Negative) RSV (PCR) (Negative) POC Troponin I (0.01-0.04) ng/ml 02/17/25 02/17/25 02/17/25 Range/Units 10:25 10:25 10:25 WBC (4.50-11.00) K/uL RBC (4.00-5.20) m/uL Hgb (12.0-16.0) gm/dL Hct (33.0-51.0) % MCV (80-100) fL MCH (26-34) pg MCHC (32-36) gm/dL RDW Coeff of Bayron (11.5-15.5) % Plt Count (140-440) K/uL Neut % (Auto) (42.0-72.0) % Lymph % (Auto) (20-44) % [place] % (Auto) (0.0-11.0) % Eos % (Auto) (0.0-7.0) % Baso % (Auto) (0.0-3.0) % Neut # (Auto) (1.7-7.0) K/uL Lymph # (Auto) (0.90-2.90) K/uL [place] # (Auto) (0.00-0.90) K/UL Eos # (Auto) (0.00-0.50) K/uL Baso # (Auto) (0.00-0.30) K/uL Abs Immat Gran (auto) (0.00-0.30) K/uL Imm/Tot Granulo (auto) % Sodium Potassium Chloride Carbon Dioxide Anion Gap BUN Creatinine Estimated Creat Clear Estimated GFR 90 Glucose Cancelled 139 H Lactate 2.1 H (0.5-1.9) mmol/L Calcium Cancelled 10.5 Magnesium 1.6 (1.5-2.6) mg/dL Total Bilirubin 1.2 (0.1-1.5) mg/dL AST 32 (12-35) U/L ALT 26 (4-35) U/L Alkaline Phosphatase 66 (40-150) U/L C-Reactive Protein 0.7 (0.5-1.0) mg/dL Total Protein 7.8 (6.0-8.3) g/dL Albumin 4.8 (3.3-5.0) g/dL SARS-CoV-2 (PCR) (Negative) Influenza Type A (PCR) (Negative) Influenza Type B (PCR) (Negative) RSV (PCR) (Negative) POC Troponin I (0.01-0.04) ng/ml 02/17/25 02/17/25 Range/Units 10:27 10:54 WBC (4.50-11.00) K/uL RBC (4.00-5.20) m/uL Hgb (12.0-16.0) gm/dL Hct (33.0-51.0) % MCV (80-100) fL MCH (26-34) pg MCHC (32-36) gm/dL RDW Coeff of Bayron (11.5-15.5) % Plt Count (140-440) K/uL Neut % (Auto) (42.0-72.0) % Lymph % (Auto) (20-44) % [place] % (Auto) (0.0-11.0) % Eos % (Auto) (0.0-7.0) % Baso % (Auto) (0.0-3.0) % Neut # (Auto) (1.7-7.0) K/uL Lymph # (Auto) (0.90-2.90) K/uL [place] # (Auto) (0.00-0.90) K/UL Eos # (Auto) (0.00-0.50) K/uL Baso # (Auto) (0.00-0.30) K/uL Abs Immat Gran (auto) (0.00-0.30) K/uL Imm/Tot Granulo (auto) % Sodium Potassium Chloride Carbon Dioxide Anion Gap BUN Creatinine Estimated Creat Clear Estimated GFR Glucose Lactate (0.5-1.9) mmol/L Calcium Magnesium (1.5-2.6) mg/dL Total Bilirubin (0.1-1.5) mg/dL AST (12-35) U/L ALT (4-35) U/L Alkaline Phosphatase (40-150) U/L C-Reactive Protein (0.5-1.0) mg/dL Total Protein (6.0-8.3) g/dL Albumin (3.3-5.0) g/dL SARS-CoV-2 (PCR) Negative SARS-CoV-2 (Negative) Influenza Type A (PCR) Negative PCR FLU A (Negative) Influenza Type B (PCR) Negative PCR FLU B (Negative) RSV (PCR) Negative PCR RSV (Negative) POC Troponin I 0.00 L (0.01-0.04) ng/ml Imaging Data Chest x-ray: Attestation: I have reviewed the pertinent imaging results. My impression: I do not note any acute infiltrate Radiologist's impression: Cardiovasculature and mediastinum: Heart size is normal. Unremarkable mediastinum. Lungs and pleural spaces: Lungs are clear. No sign of infiltrate or mass. No sign of pleural effusion. No pneumothorax. Bones and soft tissues: No significant findings. IMPRESSION: Negative chest. CT scan - abdomen: Radiologist's impression: Lower chest: Basilar atelectasis. Liver: Fatty liver. Gallbladder and bile ducts: Cholecystectomy. Pancreas: Unremarkable. No mass or inflammation. Spleen: Normal in size. No masses. Adrenal glands: Normal in size. No nodules. Kidneys: Possible punctate nonobstructing left renal calculus. Low-attenuation lesions in the left kidney incompletely assessed. No hydronephrosis is seen. GI tract: Diverticulosis. No diverticulitis is seen. Normal appendix Vasculature: Abdominal aorta is normal in caliber. Muscle Lymph nodes: No lymphadenopathy. Peritoneum/Abdominal Wall: Diastasis rectus abdominal. Scarring of the abdominal wall laxity of the inferior abdominal wall with overlying intact fascia with nonobstructive small bowel loops present. Pelvis: Unremarkable. No pelvic masses. Decompressed urinary bladder Bones: Unremarkable for age. IMPRESSION: 1. No acute findings in the abdomen or pelvis. ECG Data Interpretation: EKG by my read shows sinus bradycardia at a rate of 57. T-wave abnormality noted in lead 1. Otherwise no acute ST or T-wave changes. OR and QT intervals within normal limits. Discharge Plan Discharge Patient Disposition: Admitted As Observation
[2025-02-17] MEDS: ONDANSETRON 2 MG/ML inj 4 MG IVP (10:30)
[2025-02-17 10:33] LABS: Lactate* 2.1 mmol/L (0.5-1.9)
--- NOTE | 2025-02-17 10:33 | CRLHL7_ITS ---
For Patients: As a result of the Century Cures Act, medical imaging exams and procedure reports are released immediately into your electronic medical record. You may view this report before your referring provider. If you have questions, please contact your health care provider. INDICATION: Vomiting history TECHNIQUE: CT abdomen and pelvis without contrast. COMPARISON: None. FINDINGS: Lower chest: Basilar atelectasis. Liver: Fatty liver. Gallbladder and bile ducts: Cholecystectomy. Pancreas: Unremarkable. No mass or inflammation. Spleen: Normal in size. No masses. Adrenal glands: Normal in size. No nodules. Kidneys: Possible punctate nonobstructing left renal calculus. Low-attenuation lesions in the left kidney incompletely assessed. No hydronephrosis is seen. GI tract: Diverticulosis. No diverticulitis is seen. Normal appendix Vasculature: Abdominal aorta is normal in caliber. Muscle Lymph nodes: No lymphadenopathy. Peritoneum/Abdominal Wall: Diastasis rectus abdominal. Scarring of the abdominal wall laxity of the inferior abdominal wall with overlying intact fascia with nonobstructive small bowel loops present. Pelvis: Unremarkable. No pelvic masses. Decompressed urinary bladder Bones: Unremarkable for age. IMPRESSION: 1. No acute findings in the abdomen or pelvis. Please note that all CT scans at this facility use dose modulation, iterative reconstruction, and/or weight-based dosing when appropriate to reduce radiation dose to as low as reasonably achievable. Dictated by Jasmyne Jernigan MD @ 02/17/2025 11:08:11 AM (Electronically Signed)
[2025-02-17 10:34] LABS: Basophils Absolute Auto 0.02 K/uL (0.00-0.30); Basophils Percent Auto 0.3 % (0.0-3.0); Eosinophils Absolute Auto 0.02 K/uL (0.00-0.50); Eosinophils Percent Auto 0.3 % (0.0-7.0); Hematocrit 43.4 % (33.0-51.0); Immature Granulocytes Abs Auto 0.02 K/uL (0.00-0.30); Immature Granulocytes Pct Auto 0.3 %; Lymphocytes Percent Auto 16.8 % (20-44); Mean Corpuscular HGB Conc 35 gm/dL (32-36); Mean Corpuscular Hemoglobin 30 pg (26-34); Mean Corpuscular Volume 88 fL (80-100); Monocytes Percent Auto 5.4 % (0.0-11.0); Neutrophils Percent Auto 76.9 % (42.0-72.0); Platelet Count* 171 K/uL (140-440); RDW Coefficient of Variation % 12.3 % (11.5-15.5); Red Blood Count 4.96 m/uL (4.00-5.20); White Blood Count* 6.72 K/uL (4.50-11.00)
[2025-02-17 10:35] LABS: Slide Review Reflex No
[2025-02-17] MEDS: 0.9 % SODIUM CHLORIDE 1000 ml 1,000 ML IV (10:45)
--- NOTE | 2025-02-17 10:45 | CRLHL7_ITS ---
For Patients: As a result of the Century Cures Act, medical imaging exams and procedure reports are released immediately into your electronic medical record. You may view this report before your referring provider. If you have questions, please contact your health care provider. INDICATION: Chest pain. TECHNIQUE: Chest 1 views. COMPARISON: None. FINDINGS: Cardiovasculature and mediastinum: Heart size is normal. Unremarkable mediastinum. Lungs and pleural spaces: Lungs are clear. No sign of infiltrate or mass. No sign of pleural effusion. No pneumothorax. Bones and soft tissues: No significant findings. IMPRESSION: Negative chest. Dictated by Kalin Williamson MD @ 02/17/2025 11:21:17 AM (Electronically Signed)
[2025-02-17 10:48] LABS: Albumin* 4.8 g/dL (3.3-5.0); Chloride* 103 mmol/L (96-114); Potassium* 3.7 mmol/L (3.6-5.1); Sodium* 138 mmol/L (135-149)
[2025-02-17 10:51] LABS: Alanine Aminotransferase* 26 U/L (4-35); Alkaline Phosphatase* 66 U/L (40-150); Anion Gap 13 mEq/L (7-15); Aspartate Amino Transferase* 32 U/L (12-35); Bilirubin Total* 1.2 mg/dL (0.1-1.5); Blood Urea Nitrogen* 19 mg/dL (7-30); Calcium* 10.5 mg/dL (8.4-10.6); Carbon Dioxide* 22 mmol/L (20-32); Creatinine* 0.7 mg/dL (0.5-1.5); Estimated Glomerular Filt Rate 90 ml/min; Glucose* 139 mg/dL (60-115); Total Protein* 7.8 g/dL (6.0-8.3)
[2025-02-17 10:52] LABS: Magnesium* 1.6 mg/dL (1.5-2.6)
[2025-02-17 10:54] LABS: C Reactive Protein* 0.7 mg/dL (0.5-1.0)
--- OUTSIDE RECORDS SUMMARY | 2025-02-17 10:55 | XMS_ITS | Clinical Summary ---
Author Organization [facility] Address [address], [place] [address] Care Team Providers Care Small Battery Plate Assembler Name Role Phone Patrick Mattson MD Primary Care Provider [phone] Source Comments You are receiving this document as you are listed as the primary care provider,follow-up provider, or the patient has been referred to you for consultation.This is in compliance with the Medicare and[facility] EHR Incentive Program,which states Providers who transition their patient to another setting of careor provider of care or refers their patient to another provider of care shouldprovide summary care record for each transition of care or referral. 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 Pulse 61 09/24/2021 9:37 AM MOTOR VEHICLE ESCORT DRIVER Temperature - - Respiratory Rate - - Oxygen Saturation 95% 09/24/2021 9:37 AM MOTOR VEHICLE ESCORT DRIVER Inhaled Oxygen Concentration - - Weight 133.8 kg (295 lb) 09/24/2021 9:37 AM MOTOR VEHICLE ESCORT DRIVER Height 170.2 cm (5' 7) 09/24/2021 9:37 AM MOTOR VEHICLE ESCORT DRIVER Body Mass Index 46.2 09/24/2021 9:37 AM MOTOR VEHICLE ESCORT DRIVER Plan of Treatment Health Maintenance Due Date [...] topic Insurance MEDICARE MANAGED CARE BS BCBS DEERING BLUE Care Teams Small Battery Plate Assembler Relationship Specialty Start Date End Date Patrick Mattson MD [address] [place] [id number] PCP - General Family Practice 09/24/21
--- OUTSIDE RECORDS SUMMARY | 2025-02-17 10:55 | XMS_ITS | Clinical Summary ---
Author Organization [employer] [facility] Address [address] [place] [id number] Care Team Providers Care Materials Handling Coordinator Name Role Phone Luis Fonseca MD Primary [...] on file Legal Sex Female 6:19 AM SURGICAL SERVICES DIRECTOR Gender Identity Not on file Sexual Orientation Not on file Obstetrics History Last Filed Vital Signs Vital Sign Reading Time Taken Comments Blood Pressure 122/66 08/26/2022 12:09 PM SURGICAL SERVICES DIRECTOR Pulse 53 08/26/2022 12:09 PM SURGICAL SERVICES DIRECTOR Temperature 36.8 C (98.3 F) 08/26/2022 12:09 PM SURGICAL SERVICES DIRECTOR Respiratory Rate 18 08/26/2022 12:09 PM SURGICAL SERVICES DIRECTOR Oxygen Saturation 95% 08/26/2022 12:09 PM SURGICAL SERVICES DIRECTOR Inhaled Oxygen Concentration - - Weight [...] Code Status Discussion: Reviewed Preferences Care Teams Materials Handling Coordinator Relationship Specialty Start Date End Date Luis Fonseca MD [address] [place] [id number] PCP - General Family Practice 07/24/22
[2025-02-17] MEDS: diphenhydrAMINE 50 MG/ML inj 25 MG IVP (11:09)
[2025-02-17 11:34] LABS: PCR FLU A Negative PCR FLU A (Negative); PCR FLU B Negative PCR FLU B (Negative); PCR RSV Negative PCR RSV (Negative); SARS PCR* Negative SARS-CoV-2 (Negative)
[2025-02-17] MEDS: PROMETHAZINE 25 MG/ML INJ 12.5 MG IVP (11:53)
--- NOTE | 2025-02-17 13:04 | PM.IMHP1 ---
Assessment and Plan Assessment and plan (1) Emesis, persistent: Problem comment: - symptoms consistent with viral GI illness, however patient has history of incarcerated ventral hernia a few years ago as well as cholecystectomy and ventral hernia repair in that year. Will premedicate and obtain CT abdomen and pelvis with IV contrast. Patient also has markedly elevated blood pressure, likely in part due to not having taken her medications at all yesterday or today. I also suspect some of this is chronic as patient has been noncompliant with her medications. - admit for observation with clears as able, IV fluids for maintenance, p.r.n. Zofran, p.r.n. Compazine, will also try an oral dose of lorazepam. IV lorazepam is not available at this time due to a shortage. If no improvement or clear cause, consideration could be given to CT head especially in the setting of hypertensive urgency. Status: Acute (2) Contrast media allergy: Problem comment: Will premedicate with a 1 hour protocol that includes hydrocortisone 200 mg IV and Benadryl 50 mg IV now with IV contrast for CT in 1 hour. Status: Chronic (3) Elevated lactic acid level: Problem comment: - already resolved with IV fluids, and a suspect this is secondary to dehydration from vomiting and inability to take oral fluids over the last 36 hours. Status: Acute (4) Hypertensive urgency: Problem comment: I think this is likely secondary to inability to take any of her 4 antihypertensives for over 24 hours and history of medication noncompliance. Will lower slowly by giving her oral hydralazine and losartan now, amlodipine at bedtime and holding off on chlorthalidone for right now since she will be getting IV contrast. If blood pressure does not come down within the next 2-3 hours, or if it increases or she becomes symptomatic with headache or vision changes, IV antihypertensives will be considered Status: Acute (5) Noncompliance with medication regimen: Problem comment: Has been taking hydralazine once a day instead of 3 times a day Status: Acute (6) MARISOL (obstructive sleep apnea): Status: Chronic (7) Primary hypertension: Problem comment: As above Status: Chronic Hospitalist- H&P: HPI History of Present Illness Time Seen by Provider: 13:04 Date Seen: 02/17/25 Chief complaint: Stomach Pain/Vomiting Narrative: Poonam Sales is a 74 year old female with a h/o incarcerated ventral hernia, history of cholecystectomy, obesity, hypertension, type 2 diabetes mellitus, DVT and PE, SVT, and obstructive sleep apnea who had gone to sleep Tuesday evening and woke at midnight feeling chilled, feverish, nauseous and vomiting, and bloating. She continued to vomit about every hour and a half since then and has not tried to eat or drink at all. She last took her medications, which are essentially all antihypertensives, on Tuesday at noon. She denies diarrhea, but notes that she has had small ribbons of stool and that her stool was a little ?frothy? this morning. Her tells me that he is very hard of hearing and today he could hear her stomach rambling loudly from across the room. She denies sick contacts. She has been shopping several times this past week, but otherwise has had no contact with anybody but her . She notes that this feels like when she had an incarcerated ventral hernia in 2021 for which she had surgical intervention at [facility]. She initially had her gallbladder removed, but when that did not help, she had further investigation which revealed the incarcerated ventral hernia. In the emergency department she received Zofran and Benadryl for nausea without much effect. She then got a dose of Phenergan. Since getting Phenergan she has not vomited, but notes that she still feels very nauseous and like the emesis is right at the top of her throat. Her tells me that when she was several times when she was younger, she was hospitalized with hyperemesis and had to use suppositories to control the nausea. They are both quite concerned that she has an incarcerated ventral hernia again, because these symptoms are so similar to what she experienced at that time. They note that it was initially misdiagnosed in [address] was done without contrast, but when 1 was finally done with contrast, it was identified. Since she is allergic to contrast, the CT would stone without contrast in the emergency department. They would both like me to premedicate her and get 1 with IV contrast. She denies any chest pain or shortness of breath at present, but notes that she chronically has had chest pain and shortness of breath with exertion for years. That is unchanged. In the emergency department she got a L of IV fluid for an elevated lactate in addition to the other medications mentioned. Review of Systems Status of ROS: Reports: 10 or more systems reviewed and unremarkable except as noted in History and below [facility] Medical History (Updated 02/17/25 @ 15:11 by Macarena Ocampo MD) Abnormal echocardiogram ?R93.1 - Abnormal findings on diagnostic imaging of heart and coronary circulation (ICD-10) Prediabetes ?R73.03 - Prediabetes (ICD-10) Wheezing (08/09/24) ?R06.2 - Wheezing (ICD-10) Ventral hernia without obstruction or gangrene (06/28/22) ?K43.9 - Ventral hernia without obstruction or gangrene (ICD-10) Subacute cough (08/09/24) ?R05.2 - Subacute cough (ICD-10) Recurrent ventral hernia with incarceration (07/24/22) ?K43.0 - Incisional hernia with obstruction, without gangrene (ICD-10) Preoperative examination (06/28/22) ?Z01.818 - Encounter for other preprocedural examination (ICD-10) Obesity, morbid, BMI 40.0-49.9 (06/28/22) ?E66.01 - Morbid (severe) obesity due to excess calories (ICD-10) HTN (hypertension) (07/01/14) ?I10 - Essential (primary) hypertension (ICD-10) Encounter for screening, unspecified (08/29/24) ?Z13.9 - Encounter for screening, unspecified (ICD-10) Encounter for screening for other metabolic disorders ?Z13.228 - Encounter for screening for other metabolic disorders (ICD-10) DVT (deep venous thrombosis) (05/29/22) ?I82.409 - Acute embolism and thrombosis of unspecified deep veins of unspecified lower extremity (ICD-10) Cough, unspecified (08/09/24) ?R05.9 - Cough, unspecified (ICD-10) Chronic anticoagulation (07/24/22) ?Z79.01 - nursing home (current) use of anticoagulants (ICD-10) Biliary dyskinesia (06/28/22) ?K82.8 - Other specified diseases of gallbladder (ICD-10) Acute dehydration (06/28/22) ?E86.0 - Dehydration (ICD-10) Acute bronchitis, unspecified (08/09/24) ?J20.9 - Acute bronchitis, unspecified (ICD-10) History of deep venous thrombosis (DVT) of distal vein of right lower extremity (03/19/21) ?Z86.718 - Personal history of other venous thrombosis and embolism (ICD-10) History of pulmonary embolus (PE) (04/09/21) ?Z86.711 - Personal history of pulmonary embolism (ICD-10) SVT (supraventricular tachycardia) (07/2022) ?I47.10 - Supraventricular tachycardia, unspecified (ICD-10) Osteoarthritis of left knee ?M17.12 - Unilateral primary osteoarthritis, left knee (ICD-10) Primary hypertension ?I10 - Essential (primary) hypertension (ICD-10) Chronic nausea ?R11.0 - Nausea (ICD-10) Osteoarthritis of right knee ?M17.11 - Unilateral primary osteoarthritis, right knee (ICD-10) Chronic left hip pain ?M25.552 - Pain in left hip (ICD-10) ?G89.29 - Other chronic pain (ICD-10) Chronic left shoulder pain ?M25.512 - Pain in left shoulder (ICD-10) ?G89.29 - Other chronic pain (ICD-10) Chronic neck pain ?M54.2 - Cervicalgia (ICD-10) ?G89.29 - Other chronic pain (ICD-10) History of COVID-19 (06/2022) ?Z86.16 - Personal history of COVID-19 (ICD-10) Pulmonary hypertension ?I27.20 - Pulmonary hypertension, unspecified (ICD-10) Thyroid nodule ?E04.1 - Nontoxic single thyroid nodule (ICD-10) MARISOL (obstructive sleep apnea) ?G47.33 - Obstructive sleep apnea (adult) (pediatric) (ICD-10) Surgical History Status post total knee replacement, left (09/11/24) ?Z96.652 - Presence of left artificial knee joint (ICD-10) Incarcerated ventral hernia (07/23/22) ?K43.6 - Other and unspecified ventral hernia with obstruction, without gangrene (ICD-10) History of total abdominal hysterectomy and bilateral salpingo-oophorectomy (12/26/98) ?Z90.710 - Acquired absence of both cervix and uterus (ICD-10) ?Z90.722 - Acquired absence of ovaries, bilateral (ICD-10) ?Z90.79 - Acquired absence of other genital organ(s) (ICD-10) History of tubal ligation (1984) ?Z98.51 - Tubal ligation status (ICD-10) History of laparoscopic cholecystectomy (06/29/22) ?Z90.49 - Acquired absence of other specified parts of digestive tract (ICD-10) Family History Father Stroke, Onset Age: 82 Brother Lung cancer Sister Uterine cancer Thyroid disease Mother Coronary artery disease Social History (Updated 02/17/25 @ 14:40 by Macarena Ocampo MD) Narrative: , five kids, retired from [employer], nonsmoker, denies ETOH or recreational drug use. What is your current living situation?: I presently have a place to live Problems where you live: no known problems Problems where you live details: n/a In the past 12 months, utilities in danger of being shut off: no In past 12 months, lack of transportation kept you from medical appts, meetings, work, or getting things needed for daily living: no In the past 12 mos, have been you worried that your food would run out before you had money to buy more?: never true In the past 12 mos, the food you bought just didn't last and you didn't have money to buy more?: never true Highest level of school completed/degree received: Associate degree: academic program Smoking Status: Never smoker How often do you have a drink containing alcohol: monthly or less How many standard drinks containing alcohol do you have on a typical day: 1 or 2 AUDIT-C Alcohol total score: 1 Non-prescribed substance use: denies use Caffeine: Yes (coffee, 2 cups/day) How often does anyone, including family, friends and others, physically hurt you: never How often does anyone, including family, friends and others, insult or talk down to you: never How often does anyone, including family, friends and others, threaten you with harm: never How often does anyone, including family, friends and others, scream or curse at you: never service: No Meds Home Medications and Allergies Home Medications ?Medication ?Instructions ?Recorded ?Confirmed ?Type hydralazine 50 mg tablet 50 mg PO TID 08/29/24 02/17/25 History amlodipine 10 mg tablet 10 mg PO HS 09/11/24 02/17/25 History chlorthalidone 25 mg tablet 25 mg PO DAILY 09/11/24 02/17/25 History Allergies Allergy/AdvReac Type Severity Reaction Status Date / Time diatrizoate meglumine Allergy Unknown Rash & Verified 02/17/25 10:04 Itching hydrochlorothiazide (From Allergy Unknown Unknown Verified 02/17/25 10:04 Zestoretic) Iodinated Contrast Media Allergy Unknown Rash & Verified 02/17/25 10:04 Itching Penicillins Allergy Unknown Unknown Verified 02/17/25 10:04 lisinopril AdvReac Unknown Cough Verified 02/17/25 10:04 Exam Narrative: Exam Narrative: General: No acute distress. Awake alert oriented x3. HEENT: Normocephalic atraumatic, pupils equally round and reactive to light and accommodation. Oropharynx clear. Mucous membranes are dry. No cervical lymphadenopathy, thyromegaly or carotid bruits. No JVD. Cardiovascular: Regular rate and rhythm. Grade 2/6 systolic murmur loudest at the right upper sternal border. Chest: No increased work of breathing. Clear to auscultation bilaterally. No crackles or wheezes. Abdomen: Large well-healed midline laparotomy scar. Bowel sounds present. Soft, mildly distended, mild diffuse tenderness to palpation, slightly more in the epigastrium. No hepatosplenomegaly or masses. Extremities: No edema, no cyanosis or clubbing. Skin: No jaundice, no pallor, no rashes on visible skin. Const: Vital Signs, click to edit/add: Vital Signs - 24 hr 02/17/25 09:56 02/17/25 10:28 02/17/25 11:11 Temperature 97.7 F Pulse Rate 61 Pulse Rate [Pulse Oximeter] 60 Respiratory Rate 24 17 Blood Pressure 208/75 H Blood Pressure [Le ft Arm] Blood Pressure [Ri ght Upper Arm] 186/83 H Pulse Oximetry 98 96 98 Oxygen Delivery Me thod Room Air 02/17/25 11:15 02/17/25 12:00 02/17/25 12:10 Temperature 98.6 F Pulse Rate 59 L 56 L Pulse Rate [Pulse Oximeter] 55 L Respiratory Rate 23 30 H 20 Blood Pressure Blood Pressure [Le ft Arm] 206/81 H Blood Pressure [Ri ght Upper Arm] Pulse Oximetry 99 95 95 Oxygen Delivery [facility] Hospitalist - H&P: Result Labs Labs: Short CBC 02/17/25 Range/Units 10:25 WBC 6.72 (4.50-11.00) K/uL Hgb 15.0 (12.0-16.0) gm/dL Hct 43.4 (33.0-51.0) % Plt Count 171 (140-440) K/uL BMP 02/17/25 02/17/25 02/17/25 10:25 10:25 10:25 Sodium Cancelled 138 Potassium Cancelled 3.7 Chloride Cancelled Carbon Dioxide BUN Creatinine Glucose Calcium 02/17/25 02/17/25 02/17/25 10:25 10:25 10:25 Sodium Potassium Chloride 103 Carbon Dioxide Cancelled 22 BUN Cancelled 19 Creatinine Cancelled Glucose Calcium 02/17/25 02/17/25 02/17/25 10:25 10:25 10:25 Sodium Potassium Chloride Carbon Dioxide BUN Creatinine 0.7 Glucose Cancelled 139 H Calcium Cancelled 10.5 Liver Function 02/17/25 Range/Units 10:25 Total Bilirubin 1.2 (0.1-1.5) mg/dL AST 32 (12-35) U/L ALT 26 (4-35) U/L Alkaline Phosphatase 66 (40-150) U/L Albumin 4.8 (3.3-5.0) g/dL Ordering Physician: Nikki Gilmore M.D. Date of Service: 02/17/25 Procedure(s): CT abdomen pelvis wo [facility] Accession Number(s): [id number] cc: Nikki Gilmore M.D.; Luis Fonseca M.D.~ For Patients: As a result of the 21st Century Cures Act, medical imaging exams and procedure reports are released immediately into your electronic medical record. You may view this report before your referring provider. If you have questions, please contact your health care provider. INDICATION: Vomiting history TECHNIQUE: CT abdomen and pelvis without contrast. COMPARISON: None. FINDINGS: Lower chest: Basilar atelectasis. Liver: Fatty liver. Gallbladder and bile ducts: Cholecystectomy. Pancreas: Unremarkable. No mass or inflammation. Spleen: Normal in size. No masses. Adrenal glands: Normal in size. No nodules. Kidneys: Possible punctate nonobstructing left renal calculus. Low-attenuation lesions in the left kidney incompletely assessed. No hydronephrosis is seen. GI tract: Diverticulosis. No diverticulitis is seen. Normal appendix Vasculature: Abdominal aorta is normal in caliber. Muscle Lymph nodes: No lymphadenopathy. Peritoneum/Abdominal Wall: Diastasis rectus abdominal. Scarring of the abdominal wall laxity of the inferior abdominal wall with overlying intact fascia with nonobstructive small bowel loops present. Pelvis: Unremarkable. No pelvic masses. Decompressed urinary bladder Bones: Unremarkable for age. IMPRESSION: 1. No acute findings in the abdomen or pelvis. Please note that all CT scans at this facility use dose modulation, iterative reconstruction, and/or weight-based dosing when appropriate to reduce radiation dose to as low as reasonably achievable. Dictated by Jasmyne Jernigan MD @ 02/17/2025 11:08:11 AM (Electronically Signed) Ordering Physician: Nikki Gilmore M.D. Date of Service: 02/17/25 Procedure(s): XR chest 1V portable Accession Number(s): [id number] cc: Nikki Gilmore M.D.; Luis Fonseca M.D.~ For Patients: As a result of the 21st Century Cures Act, medical imaging exams and procedure reports are released immediately into your electronic medical record. You may view this report before your referring provider. If you have questions, please contact your health care provider. INDICATION: Chest pain. TECHNIQUE: Chest 1 views. COMPARISON: None. FINDINGS: Cardiovasculature and mediastinum: Heart size is normal. Unremarkable mediastinum. Lungs and pleural spaces: Lungs are clear. No sign of infiltrate or mass. No sign of pleural effusion. No pneumothorax. Bones and soft tissues: No significant findings. IMPRESSION: Negative chest. Dictated by Kalin Williamson MD @ 02/17/2025 11:21:17 AM (Electronically Signed)
[2025-02-17 14:32] LABS: Lactate* 1.1 mmol/L (0.5-1.9)
[2025-02-17] MEDS: LACTATED RINGERS 1000 ML 1,000 ML 125 ML IV (14:34)
[2025-02-17] MEDS: PANTOPRAZOLE SODIUM 40 MG INJ IVP (14:35)
[2025-02-17] MEDS: LORazepam 0.5 MG TABLET PO (14:35)
[2025-02-17] MEDS: HYDRALAZINE 25 MG TABLET 50 MG PO ×2 (14:35→20:40)
[2025-02-17] MEDS: LOSARTAN POTASSIUM 50 MG TABLET 100 MG PO (14:35)
[2025-02-17] MEDS: HYDROCORTISONE SOD SUCCINATE 50 MG/ML inj 200 MG IVP (14:55)
[2025-02-17] MEDS: diphenhydrAMINE 50 MG/ML inj IVP (15:03)
--- NOTE | 2025-02-17 15:36 | PC.NURSE ---
Pt was admitted to floor at 1200. No emesis episodes since coming to floor. Pt states she is dizzy at rest and lightheaded with activity. Pt is SOB with activity. Pt is hypertensive; provider notified. Nausea is persistent. Pt uses call light appropriately. Resting well at this time.
[2025-02-17 16:00] LABS: Appearance Urine Clear (Clear); Bilirubin Urine 1+ (Negative); Blood Urine 2+ (Negative); Color Urine Yellow (Yellow); Glucose Urine Negative (Negative); Ketones Urine 4+ (Negative); Leukocyte Esterase Urine Negative (Negative); Nitrite Urine Negative (Negative); Protein Urine 3+ (Negative); Specific Gravity Urine >= 1.030 (1.000-1.030)
[2025-02-17 16:24] LABS: Bacteria Urine Few; Squamous Epithelial Cell Urine Few (None-Few)
--- NOTE | 2025-02-17 19:45 | CRLHL7_ITS ---
For Patients: As a result of the Century Cures Act, medical imaging exams and procedure reports are released immediately into your electronic medical record. You may view this report before your referring provider. If you have questions, please contact your health care provider. INDICATION: Emesis. Pain. History of hernia. TECHNIQUE: CT abdomen and pelvis acquired with 135 mL Isovue IV contrast. COMPARISON: Noncontrast CT 17 Feb 2025. FINDINGS: Lower chest: Incomplete visualization of small nodule abutting the pleura in the lateral right middle lobe. Visualized portion 6 mm with well-defined borders. Liver: Unremarkable. Spleen: Unremarkable. Pancreas: Unremarkable. Gallbladder and bile ducts: Cholecystectomy clips. Kidneys: Benign cysts on the left. Adrenal glands: Unremarkable. GI tract: Diverticula of the sigmoid. No acute inflammation. No small bowel dilatation or inflammation. Appendix not apparent. Vascular structures: Negative. No sign of aneurysm. Lymph nodes: Unremarkable. Miscellaneous: Rectus diastasis with broad hernia into the small pannus. No incarceration or obstruction. Pelvic Organs: Absent uterus presumed hysterectomy. No adnexal mass or cyst. Bones: Unremarkable for age. IMPRESSION: No source for emesis or pain. No interval change. Please note that all CT scans at this facility use dose modulation, iterative reconstruction, and/or weight-based dosing when appropriate to reduce radiation dose to as low as reasonably achievable. Dictated by Kun Ren MD @ 02/17/2025 5:23:57 PM (Electronically Signed)
[2025-02-17] MEDS: AMLODIPINE 10 MG TABLET PO (20:39)
[2025-02-17] MEDS: SODIUM CHLORIDE 0.9 % (FLUSH) 10 ML SYRINGE 5 ML IVF (20:40)
[2025-02-18] MEDS: LACTATED RINGERS 1000 ML 1,000 ML 125 ML IV (00:07)
[2025-02-18 02:43] VITALS: BP 144/58; PULSE 80; RESP 16; TEMP 36.4; O2SAT 91
--- NOTE | 2025-02-18 05:13 | PC.NURSE ---
Shift note: Patient's condition has been improving as patient denied nausea and vomiting. Minimal abdominal pain of 2/10 reported required no pain medication. Patient is SBA in room. Alert and oriented. Bp was elevated at the start of the shift. Amlodipine and Hydralazine which stabilized the Bp. Patient has been sleeping well. IV line to the right AC was given persistent high pressure alarms. New IV set up at left forearm. Patient has been on RA. Recorded few times where the O2 fell below 90 but were not sustained for more than30 seconds.
[2025-02-18 07:00] VITALS: BP 200/77; PULSE 82; RESP 18; TEMP 36.8; O2SAT 92
--- NOTE | 2025-02-18 07:43 | PM.DS1 ---
DS: Providers Provider Time Seen by Provider: 07:25 Date Seen: 02/18/25 Date of admission: 02/17/25 12:10 Primary care physician: Luis Fonseca MD Admitting Clinician: Macarena Ocampo MD Attending Physician on discharge: Macarena Ocampo MD Date of Discharge: 02/18/25 DS: Diagnosis Discharge Diagnosis (1) Emesis, persistent: Status: Resolved Problem details: - symptoms consistent with viral gastroenteritis, however patient has history of incarcerated ventral hernia a few years ago as well as cholecystectomy and ventral hernia repair in that year. Will premedicate and obtain CT abdomen and pelvis with IV contrast. Patient also has markedly elevated blood pressure, likely in part due to not having taken her medications at all yesterday or today. I also suspect some of this is chronic as patient has been noncompliant with her medications. - 02/17 admit for observation with clears as able, IV fluids for maintenance, p.r.n. Zofran, p.r.n. Compazine, will also try an oral dose of lorazepam. IV lorazepam is not available at this time due to a shortage. If no improvement or clear cause, consideration could be given to CT head especially in the setting of hypertensive urgency. - 02/18 Symptoms have resolved. I suspect this was a self-limited viral gastroenteritis, probably exacerbated by markedly elevated blood pressures secondary to inability to take medications for more than 24 hours. Trial of breakfast this morning and if that goes well, discharge home. (2) Hypertensive urgency: Status: Resolved Problem details: I think this is likely secondary to inability to take any of her 4 antihypertensives for over 24 hours and history of medication noncompliance. Will lower slowly by giving her oral hydralazine and losartan now, amlodipine at bedtime and holding off on chlorthalidone for right now since she will be getting IV contrast. If blood pressure does not come down within the next 2-3 hours, or if it increases or she becomes symptomatic with headache or vision changes, IV antihypertensives will be considered - 02/18 patient was able to take some of her oral antihypertensives yesterday and blood pressure is much improved today. She gave history today that her blood pressures have actually been climbing for a while despite taking her medications. She has a lot of stress at home that has been difficult to manage. She did not realize that hydralazine is a 3 times a day medication. (3) Contrast media allergy: Status: Chronic Problem details: Will premedicate with a 1 hour protocol that includes hydrocortisone 200 mg IV and Benadryl 50 mg IV now with IV contrast for CT in 1 hour. (4) Elevated lactic acid level: Status: Resolved Problem details: - already resolved with IV fluids, and a suspect this is secondary to dehydration from vomiting and inability to take oral fluids over the last 36 hours. (5) Noncompliance with medication regimen: Status: Acute Problem details: Has been taking hydralazine once a day instead of 3 times a day. She did not realize this was a 3 times a day medication, and is agreeable to start taking it 3 times a day. Discussed the importance of adherence to her medication regimen and maintaining contact with her primary care provider if blood pressures are not at target. 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 She had felt feverish and chilled when she woke up with these symptoms. She does not have any sick contacts or diarrhea. Blood pressure was also markedly elevated. By the time she got to the floor, the 2nd antiemetic had taken effect and she was starting to feel better. Due to her history of incarcerated ventral hernia, she was premedicated for her contrast allergy and a CT abdomen and pelvis with IV contrast was obtained. This was reassuring. She had not taken her antihypertensives in over 24 hours due to nausea and vomiting. She was given several of her usual anti emetics and was able to tolerate them. Blood pressure has improved. While I suspect this is largely due to a viral gastroenteritis, it is possible that it was exacerbated by markedly elevated blood pressures caused by inability to take her usual antihypertensives. She has improved overnight and is feeling back to her usual self this morning. She is trialing breakfast and, if that goes well, will discharge home. Follow up with PCP in 1 week to discuss hypertension. Time Spent with Patient Time attestation: Total time spent providing and/or coordinating discharge services: Exam Narrative: Exam Narrative: General: No acute distress. Awake alert oriented x3. Oropharynx: Mucous membranes moist. Cardiovascular: Regular rate and rhythm. Grade 2/6 systolic murmur loudest at the right upper sternal border. Chest: No increased work of breathing. Clear to auscultation bilaterally. No crackles or wheezes. Abdomen: Bowel sounds present. Soft, nondistended, nontender. Extremities: No edema, no cyanosis or clubbing. Const: Vital Signs, click to edit/add: Vital Signs - 24 hr 02/17/25 09:56 02/17/25 10:28 02/17/25 11:11 Temperature 97.7 F Pulse Rate 61 Pulse Rate [Pulse Oximeter] 60 Respiratory Rate 24 17 Blood Pressure 208/75 H Blood Pressure [Le ft Arm] Blood Pressure [Ri ght Upper Arm] 186/83 H Pulse Oximetry 98 96 98 Oxygen Delivery Ms thod Room Air 02/17/25 11:15 02/17/25 12:00 02/17/25 12:10 Temperature 98.6 F Pulse Rate 59 L 56 L Pulse Rate [Pulse Oximeter] 55 L Respiratory Rate 23 30 H 20 Blood Pressure Blood Pressure [Le ft Arm] 206/81 H Blood Pressure [Ri ght Upper Arm] Pulse Oximetry 99 95 95 Oxygen Delivery Me thod 02/17/25 12:33 02/17/25 14:00 02/17/25 14:35 Temperature Pulse Rate Pulse Rate [Pulse Oximeter] Respiratory Rate 20 Blood Pressure Blood Pressure [Le ft Arm] 185/81 H 212/84 H Blood Pressure [Ri ght Upper Arm] Pulse Oximetry 95 Oxygen Delivery Me thod Room Air 02/17/25 15:15 02/17/25 15:30 02/17/25 15:30 Temperature Pulse Rate Pulse Rate [Pulse Oximeter] 55 L Respiratory Rate 20 20 Blood Pressure Blood Pressure [Le ft Arm] 215/86 H Blood Pressure [Ri ght Upper Arm] Pulse Oximetry 95 Oxygen Delivery Me thod Room Air 02/17/25 19:00 02/17/25 22:42 02/17/25 22:42 Temperature 97.8 F Pulse Rate Pulse Rate [Pulse Oximeter] 65 61 Respiratory Rate 18 18 18 Blood Pressure Blood Pressure [Le ft Arm] 188/75 H Blood Pressure [Ri ght Upper Arm] Pulse Oximetry 92 90 Oxygen Delivery Me thod Room Air Room Air 02/17/25 22:42 02/18/25 02:43 Temperature 97.8 F 97.5 F L Pulse Rate Pulse Rate [Pulse Oximeter] 61 80 Respiratory Rate 18 16 Blood Pressure Blood Pressure [Le ft Arm] 123/57 L 144/58 H Blood Pressure [Ri ght Upper Arm] Pulse Oximetry 90 91 Oxygen Delivery Me thod Room Air Room Air DS: Data Data Completed and Pending Completed studies during hospitalization: 02/17/2025 EKG: Sinus bradycardia, 57 beats per minute. T-wave abnormality, consider lateral ischemia. Ordering Physician: Nikki Gilmore M.D. Date of Service: 02/17/25 Procedure(s): CT abdomen pelvis wo con Accession Number(s): [id number] cc: Nikki Gilmore M.D.; Luis Fonseca M.D.~ For Patients: As a result of the Cures Act, medical imaging exams and procedure reports are released immediately into your electronic medical record. You may view this report before your referring provider. If you have questions, please contact your health care provider. INDICATION: Vomiting history TECHNIQUE: CT abdomen and pelvis without contrast. COMPARISON: None. FINDINGS: Lower chest: Basilar atelectasis. Liver: Fatty liver. Gallbladder and bile ducts: Cholecystectomy. Pancreas: Unremarkable. No mass or inflammation. Spleen: Normal in size. No masses. Adrenal glands: Normal in size. No nodules. Kidneys: Possible punctate nonobstructing left renal calculus. Low-attenuation lesions in the left kidney incompletely assessed. No hydronephrosis is seen. GI tract: Diverticulosis. No diverticulitis is seen. Normal appendix Vasculature: Abdominal aorta is normal in caliber. Muscle Lymph nodes: No lymphadenopathy. Peritoneum/Abdominal Wall: Diastasis rectus abdominal. Scarring of the abdominal wall laxity of the inferior abdominal wall with overlying intact fascia with nonobstructive small bowel loops present. Pelvis: Unremarkable. No pelvic masses. Decompressed urinary bladder Bones: Unremarkable for age. IMPRESSION: 1. No acute findings in the abdomen or pelvis. Please note that all CT scans at this facility use dose modulation, iterative reconstruction, and/or weight-based dosing when appropriate to reduce radiation dose to as low as reasonably achievable. Dictated by Jasmyne Jernigan MD @ 02/17/2025 11:08:11 AM (Electronically Signed) Ordering Physician: Nikki Gilmore M.D. Date of Service: 02/17/25 Procedure(s): XR chest 1V portable Accession Number(s): [id number] cc: Nikki Gilmore M.D.; Luis Fonseca M.D.~ For Patients: As a result of the Cures Act, medical imaging exams and procedure reports are released immediately into your electronic medical record. You may view this report before your referring provider. If you have questions, please contact your health care provider. INDICATION: Chest pain. TECHNIQUE: Chest 1 views. COMPARISON: None. FINDINGS: Cardiovasculature and mediastinum: Heart size is normal. Unremarkable mediastinum. Lungs and pleural spaces: Lungs are clear. No sign of infiltrate or mass. No sign of pleural effusion. No pneumothorax. Bones and soft tissues: No significant findings. IMPRESSION: Negative chest. Dictated by Kalin Williamson MD @ 02/17/2025 11:21:17 AM (Electronically Signed) Ordering Physician: Macarena Ocampo M.D. Date of Service: 02/17/25 Procedure(s): CT abdomen pelvis w con Accession Number(s): [id number] cc: Macarena Ocampo M.D.; Luis Fonseca M.D.~ For Patients: As a result of the Cures Act, medical imaging exams and procedure reports are released immediately into your electronic medical record. You may view this report before your referring provider. If you have questions, please contact your health care provider. INDICATION: Emesis. Pain. History of hernia. TECHNIQUE: CT abdomen and pelvis acquired with 135 mL Isovue IV contrast. COMPARISON: Noncontrast CT 17 Feb 2025. FINDINGS: Lower chest: Incomplete visualization of small nodule abutting the pleura in the lateral right middle lobe. Visualized portion 6 mm with well-defined borders. Liver: Unremarkable. Spleen: Unremarkable. Pancreas: Unremarkable. Gallbladder and bile ducts: Cholecystectomy clips. Kidneys: Benign cysts on the left. Adrenal glands: Unremarkable. GI tract: Diverticula of the sigmoid. No acute inflammation. No small bowel dilatation or inflammation. Appendix not apparent. Vascular structures: Negative. No sign of aneurysm. Lymph nodes: Unremarkable. Miscellaneous: Rectus diastasis with broad hernia into the small pannus. No incarceration or obstruction. Pelvic Organs: Absent uterus presumed hysterectomy. No adnexal mass or cyst. Bones: Unremarkable for age. IMPRESSION: No source for emesis or pain. No interval change. Please note that all CT scans at this facility use dose modulation, iterative reconstruction, and/or weight-based dosing when appropriate to reduce radiation dose to as low as reasonably achievable. Dictated by Kun Ren MD @ 02/17/2025 5:23:57 PM (Electronically Signed) Labs on day of discharge: Labs from last 24 hours 02/17/25 02/17/25 02/17/25 15:50 14:26 10:54 WBC RBC Hgb Hct MCV MCH MCHC RDW Coeff of [place] Plt Count Neut % (Auto) Lymph % (Auto) [place] % (Auto) Eos % (Auto) Baso % (Auto) Neut # (Auto) Lymph # (Auto) [place] # (Auto) Eos # (Auto) Baso # (Auto) Abs Immat Gran (auto) Imm/Tot Granulo (auto) Sodium Potassium Chloride Carbon Dioxide Anion Gap BUN Creatinine Estimated Creat Clear Estimated GFR Glucose Lactate 1.1 Calcium Magnesium Total Bilirubin AST ALT Alkaline Phosphatase C-Reactive Protein Total Protein Albumin Urine Color Yellow Urine Appearance Clear Urine pH 6.0 Ur Specific [place] >= 1.030 Urine Protein 3+ A Urine Glucose (UA) Negative Urine Ketones 4+ A Urine Blood 2+ A Urine Nitrite Negative Urine Bilirubin 1+ A Urine Urobilinogen 1.0 Ur Leukocyte Esterase Negative Urine RBC 5-10 A Urine WBC 2-5 Ur Squamous Epith Cells Few Urine Bacteria Few A SARS-CoV-2 (PCR) Negative SARS-CoV-2 Influenza Type A (PCR) Negative PCR FLU A Influenza Type B (PCR) Negative PCR FLU B RSV (PCR) Negative PCR RSV POC Troponin I 02/17/25 02/17/25 02/17/25 10:27 10:25 10:25 WBC RBC Hgb Hct MCV MCH MCHC RDW Coeff of [place] Plt Count Neut % (Auto) Lymph % (Auto) [place] % (Auto) Eos % (Auto) Baso % (Auto) Neut # (Auto) Lymph # (Auto) [place] # (Auto) Eos # (Auto) Baso # (Auto) Abs Immat Gran (auto) Imm/Tot Granulo (auto) Sodium Potassium Chloride Carbon Dioxide Anion Gap BUN Creatinine Estimated Creat Clear Estimated GFR Glucose 139 H Lactate 2.1 H Calcium 10.5 Cancelled Magnesium 1.6 Total Bilirubin 1.2 AST 32 ALT 26 Alkaline Phosphatase 66 C-Reactive Protein 0.7 Total Protein 7.8 Albumin 4.8 Urine Color Urine Appearance Urine pH Ur Specific [place] Urine Protein Urine Glucose (UA) Urine Ketones Urine Blood Urine Nitrite Urine Bilirubin Urine Urobilinogen Ur Leukocyte Esterase Urine RBC Urine WBC Ur Squamous Epith Cells Urine Bacteria SARS-CoV-2 (PCR) Influenza Type A (PCR) Influenza Type B (PCR) RSV (PCR) POC Troponin I 0.00 L 02/17/25 02/17/25 02/17/25 10:25 10:25 10:25 WBC RBC Hgb Hct MCV MCH MCHC RDW Coeff of [place] Plt Count Neut % (Auto) Lymph % (Auto) [place] % (Auto) Eos % (Auto) Baso % (Auto) Neut # (Auto) Lymph # (Auto) [place] # (Auto) Eos # (Auto) Baso # (Auto) Abs Immat Gran (auto) Imm/Tot Granulo (auto) Sodium Potassium Chloride Carbon Dioxide Anion Gap BUN Creatinine 0.7 Estimated Creat Clear 45.50 Cancelled Estimated GFR 90 Cancelled Glucose Cancelled Lactate Calcium Magnesium Total Bilirubin AST ALT Alkaline Phosphatase C-Reactive Protein Total Protein Albumin Urine Color Urine Appearance Urine pH Ur Specific [place] Urine Protein Urine Glucose (UA) Urine Ketones Urine Blood Urine Nitrite Urine Bilirubin Urine Urobilinogen Ur Leukocyte Esterase Urine RBC Urine WBC Ur Squamous Epith Cells Urine Bacteria SARS-CoV-2 (PCR) Influenza Type A (PCR) Influenza Type B (PCR) RSV (PCR) POC Troponin I 02/17/25 02/17/25 02/17/25 10:25 10:25 10:25 WBC RBC Hgb Hct MCV MCH MCHC RDW Coeff of [place] Plt Count Neut % (Auto) Lymph % (Auto) [place] % (Auto) Eos % (Auto) Baso % (Auto) Neut # (Auto) Lymph # (Auto) [place] # (Auto) Eos # (Auto) Baso # (Auto) Abs Immat Gran (auto) Imm/Tot Granulo (auto) Sodium Potassium Chloride Carbon Dioxide 22 Anion Gap 13 Cancelled BUN 19 Cancelled Creatinine Cancelled Estimated Creat Clear Estimated GFR Glucose Lactate Calcium Magnesium Total Bilirubin AST ALT Alkaline Phosphatase C-Reactive Protein Total Protein Albumin Urine Color Urine Appearance Urine pH Ur Specific [place] Urine Protein Urine Glucose (UA) Urine Ketones Urine Blood Urine Nitrite Urine Bilirubin Urine Urobilinogen Ur Leukocyte Esterase Urine RBC Urine WBC Ur Squamous Epith Cells Urine Bacteria SARS-CoV-2 (PCR) Influenza Type A (PCR) Influenza Type B (PCR) RSV (PCR) POC Troponin I 02/17/25 02/17/25 02/17/25 10:25 10:25 10:25 WBC RBC Hgb Hct MCV MCH MCHC RDW Coeff of [place] Plt Count Neut % (Auto) Lymph % (Auto) [place] % (Auto) Eos % (Auto) Baso % (Auto) Neut # (Auto) Lymph # (Auto) [place] # (Auto) Eos # (Auto) Baso # (Auto) Abs Immat Gran (auto) Imm/Tot Granulo (auto) Sodium 138 Potassium 3.7 Cancelled Chloride 103 Cancelled Carbon Dioxide Cancelled Anion Gap BUN Creatinine Estimated Creat Clear Estimated GFR Glucose Lactate Calcium Magnesium Total Bilirubin AST ALT Alkaline Phosphatase C-Reactive Protein Total Protein Albumin Urine Color Urine Appearance Urine pH Ur Specific [place] Urine Protein Urine Glucose (UA) Urine Ketones Urine Blood Urine Nitrite Urine Bilirubin Urine Urobilinogen Ur Leukocyte Esterase Urine RBC Urine WBC Ur Squamous Epith Cells Urine Bacteria SARS-CoV-2 (PCR) Influenza Type A (PCR) Influenza Type B (PCR) RSV (PCR) POC Troponin I 02/17/25 10:25 WBC 6.72 RBC 4.96 Hgb 15.0 Hct 43.4 MCV 88 MCH 30 MCHC 35 RDW Coeff of [place] 12.3 Plt Count 171 Neut % (Auto) 76.9 H Lymph % (Auto) 16.8 L [place] % (Auto) 5.4 Eos % (Auto) 0.3 Baso % (Auto) 0.3 Neut # (Auto) 5.20 Lymph # (Auto) 1.10 [place] # (Auto) 0.40 Eos # (Auto) 0.02 Baso # (Auto) 0.02 Abs Immat Gran (auto) 0.02 Imm/Tot Granulo (auto) 0.3 Sodium Cancelled Potassium Chloride Carbon Dioxide Anion Gap BUN Creatinine Estimated Creat Clear Estimated GFR Glucose Lactate Calcium Magnesium Total Bilirubin AST ALT Alkaline Phosphatase C-Reactive Protein Total Protein Albumin Urine Color Urine Appearance Urine pH Ur Specific [place] Urine Protein Urine Glucose (UA) Urine Ketones Urine Blood Urine Nitrite Urine Bilirubin Urine Urobilinogen Ur Leukocyte Esterase Urine RBC Urine WBC Ur Squamous Epith Cells Urine Bacteria SARS-CoV-2 (PCR) Influenza Type A (PCR) Influenza Type B (PCR) RSV (PCR) POC Troponin I Preliminary micro results at discharge 02/17/25 15:50 Urine Culture - Preliminary Urine,Clean Catch Culture in Progress Discharge Plan Discharge Disposition: Home, Self-Care Date of Admission: 02/17/25 12:10 Attending Provider on Discharge: Macarena Ocampo Primary Care Provider: Luis Fonseca Condition: Improved Anticipated Discharge Date/Time: 02/18/25 08:17 Discharge Medications: Continued losartan 100 mg tablet 100 mg PO DAILY Qty: 90 3RF hydralazine 50 mg tablet 50 mg PO TID Patient Comments: Only takes, one dose a day at noon. sennosides [Senna Lax] 8.6 mg Tablet 17.2 mg PO BID PRN (Reason: constipation) Qty: 100 0RF acetaminophen 500 mg capsule 500 - 1,000 mg PO Q6H MDD 4000mg per day PRN (Reason: pain) Qty: 100 0RF chlorthalidone 25 mg tablet 25 mg PO DAILY amlodipine 10 mg tablet 10 mg PO HS Discharge Orders: Discharge Order (Routine); Ordered 02/18/25 Ordered By: Macarena Ocampo Activity Level: No Restrictions Discharge Diet: Regular Follow Up Appointments: Luis Fonseca MD [Primary Care Provider] - (1 week) Forms: [employer] ([employer]) Info Instructions
[2025-02-18] MEDS: LOSARTAN POTASSIUM 50 MG TABLET 100 MG PO (08:13)
[2025-02-18] MEDS: HYDRALAZINE 25 MG TABLET 50 MG PO (08:14)
[2025-02-18] MEDS: SODIUM CHLORIDE 0.9 % (FLUSH) 10 ML SYRINGE 5 ML IVF (08:15)
--- NOTE | 2025-02-18 10:00 | PC.NURSE ---
Patient discharged to home with spouse today @ 6240. discharge education, medications, and follow up apts reviewed with patient and spouse with verbal understanding.
== END 2025-02-18 09:45 | disposition home or self-care (01) ==
LOC: ED 12:02 → MEDSURG 12:11
PROVIDERS: Admitting Provider Family Medicine; Emergency Provider Family Medicine; PCP Family Medicine; Visit Provider Family Medicine
DX: R11.2 Nausea with vomiting, unspecified (principal); I16.0 Hypertensive urgency; Z91.148 Patient's other noncompliance with medication regimen for other reason; Z91.041 Radiographic dye allergy status; R79.89 Other specified abnormal findings of blood chemistry; Z87.19 Personal history of other diseases of the digestive system; R10.9 Unspecified abdominal pain; R53.83 Other fatigue; I10 Essential (primary) hypertension; G47.33 Obstructive sleep apnea (adult) (pediatric); Z86.16 Personal history of COVID-19; Z86.711 Personal history of pulmonary embolism; Z86.718 Personal history of other venous thrombosis and embolism; Z90.49 Acquired absence of other specified parts of digestive tract
CPT/HCPCS: 36415; 71045; 74176; 74177; 80048; 80053; 81001; 83605; 83735; 84484; 85025; 86140; 87086; 87631; 93005; 94761; 96361; 96374; 96375; 96376; 99284; 99285; A9270; G0378; J1200; J1720; J2405; J2470; J2550; J7030; J7120; Q9967

== ENCOUNTER 2025-06-05 09:41 | Outpatient (CLI) | payer MEDICARE, SELFPAY | END 2025-06-05 09:42 | disposition home or self-care (01) | PROVIDERS: PCP Family Medicine; Visit Provider Family Medicine | DX: I10 Essential (primary) hypertension (principal) | CPT/HCPCS: 80048; 80061 ==

== ENCOUNTER 2025-10-09 09:51 | Emergency (ER) | payer MEDICARE, SELFPAY ==
--- OUTSIDE RECORDS SUMMARY | 2025-10-09 09:53 | XMS_ITS | Clinical Summary ---
Author Organization [facility] Address [address], [place] [address] Care Team Providers Care Manager Philosophy Name Role Phone Patrick Mattson MD Primary Care Provider [phone] Source Comments You are receiving this document as you are listed as the primary care provider,follow-up provider, or the patient has been referred to you for consultation.This is in compliance with the Medicare and[facility] EHR Incentive Program,which states Providers who transition their patient to another setting of careor provider of care or refers their patient to another provider of care shouldprovide summary care record for each transition of care or referral. [facility] Allergies Active AllergyReactionsCriticalityNoted VrtwQbiqcsgyGesmyrragyeBbfv95/16/2021 Medications MedicationSigDispense QuantityRefillsLast FilledStart DateEnd DateStatus ATENolol-chlorthalidone (TENORETIC) 50-25 MG tablet Take 1 Tablet by mouth daily.Active amLODIPine (NORVASC) 10 MG tablet Take 10 mg by mouth daily.Active furosemide (LASIX) 40 MG tablet Take 40 mg by mouth daily.Active apixaban (ELIQUIS) 5 MG tablet Take 2.5 mg by mouth two times a day.Active losartan (COZAAR) 100 MG tablet Take 100 mg by mouth daily.Active Social History Tobacco UseTypesPacks/DayYears UsedDateSmoking Tobacco: Never Assessed CommentsUnknownSex and Gender InformationValueDate RecordedSex Assigned at Not on fileLegal FqrZrvaoz06/10/2012 4:38 AM CDTGender IdentityNot on fileSexual OrientationNot on file Last Filed Vital Signs Vital SignReadingTime TakenCommentsBlood Tmgefezn205/6909/24/2021 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 Plan of Treatment Health MaintenanceDue DateLast DoneCommentsHep C Screening (Preventive Services) 1950Medicare Annual Wellness Visit1950DTaP/Tdap/Td Vaccine (1 - Tdap)1968Pneumococcal Vaccine 50+ Yrs (1 of 1 - PCV)1999 Zoster/Shingles Vaccine (1 of 2)1999Dexa1RSV Vaccine (1 - 1-dose 75+ series)4COVID-19 Vaccine (3 - 2024- season)504/, 01/02/2021Influenza Vaccine (#1)2025HepA VaccineAged OutNo longer eligible based on patient's age to complete this topicHepB VaccineAged OutNo longer eligible based on patient's age to complete this topicHib VaccineAged OutNo longer eligible based on patient's age to complete this topicIPV (Polio) Vaccine Aged OutNo longer eligible based on patient's age to complete this topicMCV4 VaccineAged OutNo longer eligible based on patient's age to complete this topic Meningococcal B VaccineAged OutNo longer eligible based on patient's age to complete this topic Insurance Care Teams Team MemberRelationshipSpecialtyStart DateEnd Date Patrick Mattson MD [address] [place] [address] PCP - GeneralFamily Ycaliklq03/16/21
--- OUTSIDE RECORDS SUMMARY | 2025-10-09 09:54 | XMS_ITS | Clinical Summary ---
Author Organization [facility] Address [address] [place] [id number] Care Team Providers Care Artist Mannequin Coloring Name Role Phone Luis Fonseca MD Primary Care Provider + Allergies Active AllergyReactionsCriticalityNoted DateCommentsDiatrizoate AllergenRash, Qpfxgkk8507/02/20144059CeprcxjfiaMdspu34/21/2021Penicillins*Jtjvqow1006/11/2014 Lisinopril-Hydrochlorothiazide*Uooqrak5606/11/2014 Medications MedicationSigDispense QuantityRefillsLast FilledStart DateEnd DateStatus amLODIPine (NORVASC) 10 mg tablet Indications:HTN (hypertension)Take 10 mg by mouth at bedtime.ctive Graduated Compression Stockings Indications:Venous insufficiency,Varicose veins of lower extremity, unspecified laterality, unspecified whether complicated,Edema, unspecified typeFor personal use. Length: calf Strength: 20-30 mmHg 1 Packet 06/30/2021ctive potassium chloride (KLOR-CON M20) 20 mEq Extended-Release tablet Indications:SOB (shortness of breath)Take 1 Tablet (20 mEq) by mouth once daily with a meal. 90 Tablet ctive chlorthalidone (HYGROTON) 25 mg tablet Indications:Pulmonary valve stenosis, unspecified etiologyTake 1 Tablet (25 mg) by mouth once daily. 90 Tablet ctive apixaban (ELIQUIS) 5 mg tablet Indications:prevention of venous thromboembolism recurrenceTake 2.5 mg by mouth in the morning and 2.5 mg in the evening.Active metFORMIN (GLUCOPHAGE) 500 mg tablet Indications:Type 2 diabetes mellitus without complication, without long-term current use of insulin (HC)[The details of the medication are not available because there are pending changes by a home healthclinician.] 60 Tablet 06/01/2022ctive Additional Information Patient not taking.Informant: Patient's Recall, Reported on 08/04/2022 sennosides-docusate (SENOKOT S) (8.6-50 mg) tablet Indications:Biliary dyskinesia[The details of the medication are not available because there are pending changes by a home healthclinician.] 20 Tablet 06/30/2022ctive Additional Information Patient not taking.Reason: See Comment (not taking), Reported on 08/10/2022 ondansetron (ZOFRAN ODT) 4 mg disintegrating tablet Indications:Nausea[The details of the medication are not available because there are pending changes by a home healthclinician.] 30 Tablet 07/08/2022ctive Additional Information Patient not taking.Reported on 08/04/2022 traMADoL (ULTRAM) 50 mg tablet Indications:Nausea[The details of the medication are not available because there are pending changes by a home healthclinician.] 24 Tablet 07/08/2022ctive Additional Information Patient not taking.Informant: Patient's Recall, Reported on 08/04/2022 cholestyramine-sucrose 4 G (QUESTRAN) 4 gram packet Indications:Diarrhea following gastrointestinal surgery[The details of the medication are not available because there are pending changes by a home health clinician.] 28 Packet 07/08/2022ctive Additional Information Patient not taking.Informant: Patient's Recall, Reported on 08/04/2022 Walker Indications:Ventral hernia without obstruction or gangreneWalker with front wheels for home use for 999 days. 1 Each 07/29/2022ctive oxyCODONE (ROXICODONE) 5 mg immediate release tablet Indications:Recurrent ventral hernia with incarceration[The details of the medication are not available because there are pending changes by a home health clinician.] 10 Tablet 07/31/2022 11:30 AM CDT12Active Additional Information Patient not taking.Reason: See Comment (not taking), Reported on 08/10/2022 psyllium husk, with sugar, (METAMUCIL) 3.4 gram packet Indications:Diarrhea, unspecified type[The details of the medication are not available because there are pending changes by a home healthclinician.] 30 Packet 08/01/2022ctive Additional Information Patient not taking.Reason: See Comment (not taking), Reported on 08/10/2022 metoprolol succinate (TOPROL XL) 100 mg Sustained-Release tablet Indications:HTN (hypertension)Take 1 Tablet (100 mg) by mouth once daily. 30 Tablet 08/02/2022ctive losartan (COZAAR) 50 mg tablet Indications:HTN (hypertension)Take 1 Tablet (50 mg) by mouth two times daily. 30 Tablet 08/01/2022ctive Wheat Dextrin (Benefiber) 1 gram chew 2 Tablets two times daily.Active ondansetron (ZOFRAN) 4 mg tablet TAKE ONE TABLET BY MOUTH EVERY 12 HOURS FOR NAUSEA AND VOMITING.07/02/2022ctive hydrALAZINE (APRESOLINE TABLET) 50 mg tablet Indications:HTN (hypertension)Take 1 Tablet (50 mg) by mouth three times daily. 270 Tablet ctive benzonatate (TESSALON) 100 mg capsule Indications:Acute coughTake 1 Capsule (100 mg) by mouth 3 times daily if needed for Cough. 21 Capsule 09/28/2025tive albuterol HFA (PRO-AIR; VENTOLIN; PROVENTIL) 90 mcg/actuation inhaler Indications:Pneumonia due to infectious organism, unspecified laterality, unspecified part of lungInhale 1-2 Puffs by mouth every 4 hours if needed for Shortness Of Breath or Wheezing. 1 Each 5Active predniSONE (DELTASONE) 20 mg tablet Indications:Acute cough,WheezingTake 2 Tablets (40 mg) by mouth one time for 1 dose. 2 Tablet /Expired doxycycline hyclate 100 mg capsule Indications:Pneumonia due to infectious organism, unspecified laterality, unspecified part of lungTake 1 Capsule (100 mg) by mouth two times daily for 7 days. 14 Capsule /Expired predniSONE (DELTASONE) 20 mg tablet Indications:Acute cough,WheezingTake 2 Tablets (40 mg) by mouth once daily with a meal for 4 days. 8 Tablet /ExpiredHospital, Clinic, or Other Facility Administered MedicationOrdered DoseRouteFrequencyStart DateEnd DateStatus albuterol 0.083% (2.5 mg/3 mL) neb solution 2.5 mg Indications:Acute cough,Wheezing2.5 mgNEBONE TIME/Ended cefTRIAXone 1 g INTRAMUSCULAR injection 1 g Indications:lower respiratory infection1 gIMONE TIMEEnded Active Problems ProblemNoted DateDiagnosed DateDM type 2 (diabetes mellitus, type 2)07/26/2022 History of DVT of left lower yqknyabyn76/16/2022hronic anticoagulation 07/24/2022ecurrent ventral hernia with sfckskoxzmydc38/15/2022 Overview (07/26/2022): Status post exploratory laparotomy, lysis of adhesions, reduction of incarcerated incisional hernia, and incisional hernia repair without mesh, Dr. Campos, 07/25/2022. Biliary vapdqsyygn39/19/2022besity, morbid, BMI 40.0-49.909Ventral hernia without obstruction or ptxevgwq36/19/2022reoperative examination 06/28/2022cute yzogreqoija23/19/2022DVT (deep venous thrombosis)05/29/2022HTN (hypertension)07/01/2014 Resolved Problems ProblemNoted DateDiagnosed DateResolved DiudNcuncnoquoi43/21/202210/ Abdominal pain Encounters DateTypeDepartmentCare EruuHuysddyshaa47/31/2025Nurse Triage [address] [phone] Luis Fonseca MD Leg Pain/problem (Right lower leg pain x2 days)09/28/2025 9:20 AM CSTOffice Visit [facility] [address] [place] [phone] Mary Jo Echols PA URI111/29/2024Travelfrom Last 3 Months Immunizations ImmunizationAdministration DatesNext DuePneumococcal, Rzpnmuasglt37/01/2017( Deferred: Patient Refused) Family History Medical HistoryRelationNameCommentsStrokeFatherRelationNameStatusCommentsFather DeceasedMotherDeceased Social History Tobacco UseTypesPacks/DayYears UsedDateSmoking Tobacco: NeverSmokeless Tobacco: NeverAlcohol UseStandard Drinks/WeekCommentsYes0 (1 standard drink = 0.6 oz pure alcohol)rare wineSocial ConnectionsAnswerDate RecordedFrequency of Communication with Friends and FamilyNot on file10/10/2021Financial Resource StrainAnswerDate RecordedDifficulty of Paying Living ExpensesNot on file2Difficulty of Paying Living ExpensesNot on file10/10/2021CommentsNoSex and Gender InformationValueDate RecordedSex Assigned at BirthNot on fileLegal SexFemale 10/23/2012 6:19 AM CSTGender IdentityNot on fileSexual OrientationNot on file Last Filed Vital Signs Vital SignReadingTime TakenCommentsBlood Ifsehfff798/8109/28/2025 9:14 AM PUMPER HEAD Bsjng378909/28/2025 9:14 AM PYDZrdwlhzqbhh82.1 ??C (97 ??F)09/28/2025 9:14 AM PUMPER HEAD Respiratory Fjdv391911/29/2024 9:14 AM CSTOxygen Vcgqjfbynt73%09/28/2025 9:14 AM CSTInhaled Oxygen Concentration--Zsxrtu093.9 kg (271 lb)07/31/2022 3:00 AM CDT Mgqabt666.6 cm (5' 6)07/29/2022 9:00 AM CDTBody Mass Index43.7407/29/2022 9:00 AM CDT Plan of Treatment Health MaintenanceDue DateLast DoneCommentsTetanus agsdrvg1208/06/1960Depression screening for age 12+1961Hepatitis C screening for age 18-7908/06/1967 Pneumococcal series for age 50+ (1 of 2 - PCV)1968Zoster (shingles) series for age 50+ (1 of 2)1999DEXA/DXA scan for age 65+2014Medicare Wellness for age 65+2014MI (ht and wt on same day) for age 18+05/05/2023 05/05/2022, 06/30/2021SV vaccine for adults or (1 - 1-dose 75+ series)2024OVID-19 vaccine series (3 - 2024- season)2025 02/03/2021, 01/02/2021Influenza Vaccine (#1)2025Hepatitis B series for 19+ Aged OutNo longer eligible based on patient's age to complete this topic Insurance Advance Directives * Full Code (Latest Code Status on File) Date ActivatedDate HvydqsafxgcIxtwkkxn47/16/2022 3:20 PM10 2:09 PM Patient intended on full code status and was not aware that she was listed as DNR. Patient and family at bed side would like her to be full code.Question AnswerCommentsCode Status Discussion:* Reviewed Preferences * DNR Date ActivatedDate TsymvmqvvrxYwpxjjdx36/15/2022 7:34 PM10 3:20 PM QuestionAnswerCommentsCode Status Discussion:* Reviewed Preferences * DNR Date ActivatedDate InactivatedComments06/28/2022 9:38 AM06/30/2022 12:30 PM QuestionAnswerCommentsCode Status Discussion:* Other * prior orders * DNR Date ActivatedDate InactivatedComments05/29/2022 12:34 PM05/30/2022 4:19 PM QuestionAnswerCommentsCode Status Discussion:* Reviewed Preferences Care Teams Team MemberRelationshipSpecialtyStart DateEnd Date Luis Fonseca MD [address] [place] [address] [facility] Rahotwpn07/15/22
[2025-10-09 10:13] VITALS: BP 194/79; PULSE 70; RESP 18; TEMP 36.1; O2SAT 95
--- NOTE | 2025-10-09 10:19 | CRLHL7_ITS ---
For Patients: As a result of the Century Cures Act, medical imaging exams and procedure reports are released immediately into your electronic medical record. You may view this report before your referring provider. If you have questions, please contact your health care provider. INDICATION: Leg pain and swelling. TECHNIQUE: Ultrasound venous duplex lower right extremity. Compression venous exam was performed using ford-scale, color Doppler, and spectral Doppler analysis. COMPARISON: None. FINDINGS: Deep veins: An acute, nonocclusive thrombus is seen within the right popliteal vein. Sonographic imaging demonstrates the right common femoral, deep femoral, superficial femoral, posterior tibial and the contralateral left common femoral veins to be fully compressible with normal color Doppler blood flow. The right peroneal veins are not well visualized. Superficial veins: Greater saphenous vein is fully compressible. No popliteal cyst. IMPRESSION: Nonocclusive acute deep vein thrombosis within the right popliteal vein. The above findings were communicated to the ordering provider Dr. Muñoz by Dr. Quinn at approximately 11:24 a.m. on 10/09/2025. Dictated by Barbie Quinn MD @ 10/09/2025 11:25:37 AM (Electronically Signed)
--- OUTSIDE RECORDS SUMMARY | 2025-10-09 11:34 | XMS_ITS | Continuity of Care Document ---
Author Organization [facility] Address [address] [address] Insurance Providers Payer Plan Claims Address Claims Phone Policy Number Group Number Relation Employer Guarantor Name Guarantor Guarantor Address Guarantor Phone MEDICARE MEDICARE tel:[phone] [address] b[facility]SSA[facility] [address] [address] [address] tel:[phone] [address] MEDICARE PART A - HB USE ONLYMEDICARE PART A - HB USE ONLYATTN: CLAIMS, [address], [facility] [place] [id number] [address] Problems Condition ICD9 code ICD10 code SNOMED code Start Date End Date S tatus Encounter for screening for other metabo lic disorders Z13.228Cough, rswvmelsdqeH57.6GjsvntljY52.2Acute bronchitis, aesahxbdlojN10.9 Subacute mfifiP60.2Pulmonary hypertension, teuvfkocdxaL07.20Pulmonary hypertension, uxuyqlzyohaK42.20Encounter for screening, mbhqlmcedokT99.9Presence of left artificial knee aocrjO01.652Personal history of pulmonary embolism Z86.711Obstructive sleep apnea (adult) (pediatric)G47.33Presence of left artificial knee bxxzuX84.652Personal history of pulmonary kluyekcgY71.711 Personal history of other venous thrombosis and ujpobnstW45.718Essential (primary) zpkgmumgrttgI42Qtnxmixvwjm sleep apnea (adult) (pediatric)G47.33 Presence of left artificial knee gzxneF01.055BwsrfsfswizD35.03Personal history of pulmonary ejzpuyrzC76.711Personal history of other venous thrombosis and kmjmejsiU80.718Essential (primary) wtlbcaygtudsQ50Kvthrtfcfzt sleep apnea (adult) (pediatric)G47.33 Results No Results Allergies, adverse reactions, alerts No known allergies and adverse reactions Medications No administered medications reported Vital Signs No vital signs reported Social History No smoking Hx information available
--- NOTE | 2025-10-09 11:55 | ED.GENADULT ---
HPI - General Adult General Date Seen: 10/09/25 Chief complaint: Lower Extremity Swelling Stated complaint: Poss DVT Time Seen by Provider: 10/09/25 09:53 Source: patient Mode of arrival: ambulatory Limitations: no limitations History of Present Illness HPI narrative: Patient is a 75-year-old female presenting for right leg pain. She states pain is been going on for the past couple days. She has no some mild swelling to the right lower extremity. She states she has been having some chest pain and shortness of breath but states has been going for 2 weeks when she was diagnosed with pneumonia. Has not noticed any changes in past couple days. Has had 1 previous blood clot but is not currently on any blood thinners. Does not take any NSAIDs or aspirin. Denies lightheadedness or dizziness. No other concerns noted at this time. Related Data Home Medications ?Medication ?Instructions ?Recorded ?Confirmed wheat dextrin 1 gram chewable 2 PO 02/25/25 03/18/25 tablet (Benefiber Sugar Free (dextrin)) Previous Rx's ?Medication ?Instructions ?Recorded sennosides 8.6 mg tablet (Senna 17.2 mg (2 x 8.6 mg) PO BID PRN 09/11/24 Lax) constipation #100 tabs metoclopramide HCl 10 mg tablet 10 mg PO Q8H PRN nausea and 02/25/25 (Reglan) vomiting #20 tabs ondansetron 8 mg disintegrating 8 mg PO TID PRN nausea and 02/25/25 tablet vomiting #30 tabs amlodipine 10 mg tablet 10 mg PO HS #90 tabs 06/05/25 chlorthalidone 25 mg tablet 50 mg (2 x 25 mg) PO DAILY #180 06/05/25 tabs hydralazine 50 mg tablet 50 mg PO TID #270 tabs 06/05/25 losartan 100 mg tablet 100 mg PO DAILY #90 tabs 06/05/25 metoprolol succinate 100 mg 100 mg PO QDAY #90 tabs 09/02/25 tablet,extended release 24 hr apixaban 5 mg (74 tabs) tablets in 5 mg PO BID #74 ea 10/09/25 a dose pack (Eliquis DVT-PE Treat 30D Start) Allergies Allergy/AdvReac Type Severity Reaction Status Date / Time diatrizoate meglumine Allergy Unknown Rash & Verified 10/09/25 10:18 Itching hydrochlorothiazide (From Allergy Unknown Unknown Verified 10/09/25 10:18 Zestoretic) Iodinated Contrast Media Allergy Unknown Rash & Verified 10/09/25 10:18 Itching Penicillins Allergy Unknown Unknown Verified 10/09/25 10:18 lisinopril AdvReac Unknown Cough Verified 10/09/25 10:18 Review of Systems Status of ROS: Reports: 10 or more systems reviewed and unremarkable except as noted in History and below PFSH PFSH Medical History Abnormal echocardiogram ?R93.1 - Abnormal findings on diagnostic imaging of heart and coronary circulation (ICD-10) Prediabetes ?R73.03 - Prediabetes (ICD-10) Wheezing (08/09/24) ?R06.2 - Wheezing (ICD-10) Ventral hernia without obstruction or gangrene (06/28/22) ?K43.9 - Ventral hernia without obstruction or gangrene (ICD-10) Subacute cough (08/09/24) ?R05.2 - Subacute cough (ICD-10) Recurrent ventral hernia with incarceration (07/24/22) ?K43.0 - Incisional hernia with obstruction, without gangrene (ICD-10) Preoperative examination (06/28/22) ?Z01.818 - Encounter for other preprocedural examination (ICD-10) Obesity, morbid, BMI 40.0-49.9 (06/28/22) ?E66.01 - Morbid (severe) obesity due to excess calories (ICD-10) HTN (hypertension) (07/01/14) ?I10 - Essential (primary) hypertension (ICD-10) Encounter for screening, unspecified (08/29/24) ?Z13.9 - Encounter for screening, unspecified (ICD-10) Encounter for screening for other metabolic disorders ?Z13.228 - Encounter for screening for other metabolic disorders (ICD-10) DVT (deep venous thrombosis) (05/29/22) ?I82.409 - Acute embolism and thrombosis of unspecified deep veins of unspecified lower extremity (ICD-10) Cough, unspecified (08/09/24) ?R05.9 - Cough, unspecified (ICD-10) Chronic anticoagulation (07/24/22) ?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 (ICD-10) Biliary dyskinesia (06/28/22) ?K82.8 - Other specified diseases of gallbladder (ICD-10) Acute dehydration (06/28/22) ?E86.0 - Dehydration (ICD-10) Acute bronchitis, unspecified (08/09/24) ?J20.9 - Acute bronchitis, unspecified (ICD-10) History of deep venous thrombosis (DVT) of distal vein of right lower extremity (03/19/21) ?Z86.718 - Personal history of other venous thrombosis and embolism (ICD-10) History of pulmonary embolus (PE) (04/09/21) ?Z86.711 - Personal history of pulmonary embolism (ICD-10) SVT (supraventricular tachycardia) (07/2022) ?I47.10 - Supraventricular tachycardia, unspecified (ICD-10) Osteoarthritis of left knee ?M17.12 - Unilateral primary osteoarthritis, left knee (ICD-10) Primary hypertension ?I10 - Essential (primary) hypertension (ICD-10) Chronic nausea ?R11.0 - Nausea (ICD-10) Osteoarthritis of right knee ?M17.11 - Unilateral primary osteoarthritis, right knee (ICD-10) Chronic left hip pain ?M25.552 - Pain in left hip (ICD-10) ?G89.29 - Other chronic pain (ICD-10) Chronic left shoulder pain ?M25.512 - Pain in left shoulder (ICD-10) ?G89.29 - Other chronic pain (ICD-10) Chronic neck pain ?M54.2 - Cervicalgia (ICD-10) ?G89.29 - Other chronic pain (ICD-10) History of COVID-19 (06/2022) ?Z86.16 - Personal history of COVID-19 (ICD-10) Pulmonary hypertension ?I27.20 - Pulmonary hypertension, unspecified (ICD-10) Thyroid nodule ?E04.1 - Nontoxic single thyroid nodule (ICD-10) MARISOL (obstructive sleep apnea) ?G47.33 - Obstructive sleep apnea (adult) (pediatric) (ICD-10) Surgical History Status post total knee replacement, left (09/11/24) ?Z96.652 - Presence of left artificial knee joint (ICD-10) Incarcerated ventral hernia (07/23/22) ?K43.6 - Other and unspecified ventral hernia with obstruction, without gangrene (ICD-10) History of total abdominal hysterectomy and bilateral salpingo-oophorectomy (12/26/98) ?Z90.710 - Acquired absence of both cervix and uterus (ICD-10) ?Z90.722 - Acquired absence of ovaries, bilateral (ICD-10) ?Z90.79 - Acquired absence of other genital organ(s) (ICD-10) History of tubal ligation (1984) ?Z98.51 - Tubal ligation status (ICD-10) History of laparoscopic cholecystectomy (06/29/22) ?Z90.49 - Acquired absence of other specified parts of digestive tract (ICD-10) Family History Father Stroke, Onset Age: 82 Brother Lung cancer Sister Uterine cancer Thyroid disease Mother Coronary artery disease Social History Narrative: , five kids, retired from [employer], nonsmoker, denies ETOH or recreational drug use. What is your current living situation?: I presently have a place to live Problems where you live: no known problems Problems where you live details: n/a In the past 12 months, utilities in danger of being shut off: no In past 12 months, lack of transportation kept you from medical appts, meetings, work, or getting things needed for daily living: no In the past 12 mos, have been you worried that your food would run out before you had money to buy more?: never true In the past 12 mos, the food you bought just didn't last and you didn't have money to buy more?: never true Highest level of school completed/degree received: Associate degree: academic program Smoking Status: Never smoker How often do you have a drink containing alcohol: monthly or less How many standard drinks containing alcohol do you have on a typical day: 1 or 2 AUDIT-C Alcohol total score: 1 Non-prescribed substance use: denies use Caffeine: Yes (coffee, 2 cups/day) How often does anyone, including family, friends and others, physically hurt you: never How often does anyone, including family, friends and others, insult or talk down to you: never How often does anyone, including family, friends and others, threaten you with harm: never How often does anyone, including family, friends and others, scream or curse at you: never service: No Exam Narrative: Exam Narrative: Const: Well-nourished, Well-developed, in in a distress Eyes: PERRL, no conjunctival injection, and symmetrical lids HENT: Atraumatic external nose and ears. Moist mucous membranes. Neck: Symmetric, trachea midline, No thyromegaly. CVS: RRR, No murmurs or gallops. Peripheral pulses 2+ and equal in all extremities RESP: Unlabored respiratory effort. Clear to auscultation bilaterally. GI: Nontender/Nondistended, No rebound or guarding. MSK:Extremities w/o deformity, Normal Active ROM, right lower extremity swelling +1 up to the licona Skin: Warm, Dry. No rashes or lesions. Neuro: Normal Muscle tone, No focal neurological deficits. Psych: Awake, Alert, & Oriented x3. Appropriate mood and affect. Const: Vital Signs, click to edit/add: Vital Signs - 24 hr 10/09/25 10:13 Temperature 96.9 F L Pulse Rate [Right Pulse Oximeter] 70 Respiratory Rate 18 Blood Pressure [Ri ght Upper Arm] 194/79 H Pulse Oximetry 95 Oxygen Delivery Me thod Room Air Course Vital Signs Vital signs: Initial Vital Signs Temperature 96.9 F L 10/09/25 10:13 Temperature Source Temporal Artery Scan 10/09/25 10:13 Pulse Rate 70 10/09/25 10:13 Pulse Rhythm Regular 10/09/25 10:13 Pulse Strength 3+ Normal 10/09/25 10:13 Respiratory Rate 18 10/09/25 10:13 Blood Pressure 194/79 H 10/09/25 10:13 Blood Pressure Mean 117 H 10/09/25 10:13 Blood Pressure Position Sitting 10/09/25 10:13 Pulse Oximetry 95 10/09/25 10:13 Oxygen Delivery Method Room Air 10/09/25 10:13 Vital Signs Temperature 96.9 F L 10/09/25 10:13 Pulse Rate 70 10/09/25 10:13 Respiratory Rate 18 10/09/25 10:13 Blood Pressure 194/79 H 10/09/25 10:13 Pulse Oximetry 95 10/09/25 10:13 Oxygen Delivery Method Room Air 10/09/25 10:13 Temperature 96.9 F L 10/09/25 10:13 Pulse Rate 70 10/09/25 10:13 Respiratory Rate 18 10/09/25 10:13 Blood Pressure 194/79 H 10/09/25 10:13 Pulse Oximetry 95 10/09/25 10:13 Oxygen Delivery Method Room Air 10/09/25 10:13 Medical Decision Making MDM Narrative Medical decision making narrative: Patient is a 75-year-old female presenting to emergency department for concerns of a blood clot in her legs. Ultrasound was ordered in triage and came back positive showing a DVT. I then went to speak to the patient. She is having some chest pain shortness of breath that she states has been going on for a few weeks and that has not changed at all recently. I spoke to her about possible concerns of her developing a blood clot in her lungs. I informed her that most likely as her vital signs are stable we will not post exchange manager but we will look to see if it is causing any heart strain. She states she overall feels well though and is concerned we will find abnormalities though cause unnecessary testing when she could just follow up. After shared decision making it was determined not to do any further workup at this time. I did give her very strict return precautions to return for worsening chest pain, shortness of breath or she feels lightheaded along with any other concerning symptoms. She states she understands. Will start her on Eliquis. Imaging Data Venous US: Attestation: I have reviewed the pertinent imaging results. Radiologist's impression: Nonocclusive acute deep vein thrombosis within the right popliteal vein. The above findings were communicated to the ordering provider Dr. Muñoz by Dr. Quinn at approximately 11:24 a.m. on 10/09/2025. Dictated by Barbie Quinn MD @ 10/09/2025 11:25:37 AM Discharge Plan Discharge Clinical Impression: DVT (deep venous thrombosis) Qualifiers: DVT location: lower extremity Affected thrombotic vein of extremity: popliteal Chronicity: acute Laterality: right Qualified Code(s): I82.431 - Acute embolism and thrombosis of right popliteal vein Patient Disposition: Home, Self-Care Condition: Stable Instructions: Deep Vein Thrombosis (DC) Additional Instructions: While your chest pain and shortness of breath is most likely related to your pneumonia we did speak about doing further workup to make sure there were not other abnormalities. You preferred to follow-up outpatient which is very reasonable considering your normal appearing vital signs. I do highly recommend that he return for re-evaluation if develop worsening chest pain, shortness of breath, lightheadedness or any other concerning symptoms. Please follow-up with the primary care provider closely. Again have a low threshold to return for re-evaluation Prescriptions: [place] DVT-PE Treat 30D Start 5 mg (74 tabs) tablets,dose pack 5 mg PO BID Qty: 74 0RF Rx Instructions: take 10 mg twice daily for for 7 days then 5 mg twice daily the her after that No Action Benefiber Sugar Free (dextrin) 1 gram tablet,chewable 2 PO Rx Instructions: 2 Tablets two times daily. ondansetron 8 mg tablet,disintegrating 8 mg PO TID PRN (Reason: nausea and vomiting) Qty: 30 1RF metoclopramide HCl [Reglan] 10 mg tablet 10 mg PO Q8H PRN (Reason: nausea and vomiting) Qty: 20 0RF hydralazine 50 mg tablet 50 mg PO TID Qty: 270 1RF amlodipine 10 mg tablet 10 mg PO HS Qty: 90 1RF chlorthalidone 25 mg tablet 50 mg PO DAILY Qty: 180 1RF losartan 100 mg tablet 100 mg PO DAILY Qty: 90 1RF sennosides [Senna Lax] 8.6 mg Tablet 17.2 mg PO BID PRN (Reason: constipation) Qty: 100 0RF metoprolol succinate 100 mg tablet extended release 24 hr 100 mg PO QDAY Qty: 90 0RF Follow Up/Referrals: Luis Fonseca MD [Primary Care Provider, Family Practice] Stand Alone Forms: [email or web address] Info Instructions
== END 2025-10-09 12:14 | disposition home or self-care (01) ==
PROVIDERS: Emergency Provider Student in an Organized Health Care Education/Training Program; PCP Family Medicine
DX: I82.431 Acute embolism and thrombosis of right popliteal vein (principal); R06.02 Shortness of breath
CPT/HCPCS: 93971; 99283; 99284